=== PATIENT | female | born 1955 | race Caucasian/White ===

== ENCOUNTER 2018-03-22 11:52 | Inpatient (IN) | payer BC ==
[2018-03-22] MEDS ORDERED: SODIUM CHLORIDE 0.9% 1,000 ML IV ONE (13:11)
[2018-03-22] MEDS ORDERED: PIPERACILLIN-TAZOBACTAM 3.375 GM in DEXTROSE/WATER 1 50ML.BAG IVPB STA (13:11)
[2018-03-22] MEDS ORDERED: metroNIDAZOLE-NS PMX 500 MG in SALINE 1 100ML.BAG IVPB STA (13:11)
--- NOTE | 2018-03-22 13:13 | ED ---
Abdominal Pain HPI - General Chief Complaint: Abdominal Pain Stated Complaint: Abd Pain Time Seen by Provider: 03/22/18 12:38 Source: patient, EMS Mode of arrival: EMS Limitations: no limitations - History of Present Illness Initial Comments: Patient is a 62-year-old female, transferred from [facility], with a chief complaint of perforated diverticulitis. Patient has been having pain since 2: 00 yesterday. Patient states he was initially seen in urgent care and treated for urinary tract infection. Today she went back to the emergency department because her pain was worse, computed tomography scan shows a localized perforated diverticulitis without evidence of abscess. Patient was given antibiotics and pain medication from the outside facility. Patient has no other complaints currently. - Related Data Home Medications Medication Instructions Recorded Confirmed Albuterol Sulfate [Proair Hfa] 2 puff INHALATION RT-QID PRN 03/22/18 03/22/18 Cholecalciferol [Vitamin D3] 5,000 unit PO DAILY 03/22/18 03/22/18 Clindamycin Gel [Clindamycin 1 applic TOPICAL BID 03/22/18 03/22/18 Phosphate] Cyanocobalamin (Vitamin B-12) 5,000 mcg PO DAILY 03/22/18 03/22/18 [Vitamin B12] Diclofenac Sodium [Voltaren] 75 mg PO BID 03/22/18 03/22/18 Fenofibrate Nanocrystallized 145 mg PO DAILY 03/22/18 03/22/18 [Tricor] Fish Oil/Dha/Epa [Fish Oil 1,200 1 cap PO DAILY 03/22/18 03/22/18 mg Fish Oil] Fluticasone Nasal [place] [Flonase 1 - 2 spray EA NOSTRIL BID PRN 03/22/18 Nasal [place]] Glimepiride [Amaryl] 2 mg PO DAILY 03/22/18 03/22/18 Glucosam/Manan-Msm1/C/Robin/Bosw 1 tab PO DAILY 03/22/18 03/22/18 [Glucosamine-Chondroitin Tablet] Ketoconazole 2% Cream [Nizoral 2%] 1 applic TOPICAL DAILY 03/22/18 03/22/18 Levothyroxine Sodium [Synthroid] 100 mcg PO DAILY 03/22/18 03/22/18 RX: Desloratadine 5 mg PO DAILY 03/22/18 03/22/18 RX: Ranitidine HCl 150 mg PO BID 03/22/18 03/22/18 Vitamin E (Dl,Tocopheryl Acet) 400 unit PO DAILY 03/22/18 03/22/18 [Vitamin E] amLODIPine [Norvasc] 5 mg PO DAILY 03/22/18 03/22/18 traMADol HCL [Ultram] 50 mg PO DAILY 03/22/18 03/22/18 Allergies Allergy/AdvReac Type Severity Reaction Status Date / Time ciprofloxacin [From Cipro] Allergy Unknown Verified 03/22/18 13:02 metformin Allergy Nausea & Verified 03/22/18 13:02 Vomiting & Diarrhea atorvastatin [From Lipitor] AdvReac MUSCLE PAIN Verified 03/22/18 13:02 lisinopril AdvReac Cough Verified 03/22/18 13:02 simvastatin AdvReac MUSCLE PAIN Verified 03/22/18 13:02 Review of Systems ROS Statement: Those systems with pertinent positive or pertinent negative responses have been documented in the HPI. ROS Other: All systems not noted in ROS Statement are negative. Constitutional: Reports: fever Gastrointestinal: Reports: abdominal pain, nausea Past Medical History Past Medical History: Asthma, Cancer, Diabetes Mellitus, Hyperlipidemia, Hypertension, Sleep Apnea/CPAP/BIPAP, Thyroid Disorder History of Any Multi-Drug Resistant Organisms: None Reported Past Surgical History: Orthopedic Surgery Past Psychological History: No Psychological Hx Reported Smoking Status: Never smoker Past Alcohol Use History: Rare Past Drug Use History: None Reported General Exam Limitations: no limitations General appearance: alert, in no apparent distress Head exam: Present: atraumatic, normocephalic Eye exam: Present: normal appearance ENT exam: Present: normal exam Neck exam: Present: normal inspection Respiratory exam: Present: normal lung sounds bilaterally. Absent: respiratory distress, wheezes Cardiovascular Exam: Present: normal rhythm, tachycardia GI/Abdominal exam: Present: soft, tenderness (Patient has tenderness in the suprapubic region, and the left lower quadrant. Abdomen is nonperitoneal ). Absent: distended Rectal exam: Present: deferred Extremities exam: Present: normal inspection Back exam: Present: normal inspection Neurological exam: Present: alert, oriented X3 Psychiatric exam: Present: normal affect, normal mood Skin exam: Present: warm, dry, intact Course Vital Signs 03/22/18 11:53 Temperature 100.8 F H Pulse Rate 110 H Respiratory 20 Rate Blood Pressure 151/67 O2 Sat by Pulse 97 Oximetry Medical Decision Making - Medical Decision Making Patient presents with a chief complaint of a ruptured diverticulitis from an outside facility. On initial evaluation, patient is mildly febrile and tachycardic. She otherwise appears stable. Patient was given pain medications at the outside facility and says that currently her pain is tolerable. She was given an initial dose of Unasyn and vancomycin. This case was discussed with Dr. Quintero who accepts admission with consult to Dr. Montenegro for medicine. He is requesting initiation of Zosyn and Flagyl. Patient was given an additional liter of normal saline bolus, and started on a rate of 100ml per hour. Patient is nothing by mouth. Disposition Clinical Impression: Sepsis, Acute abdomen, Perforated diverticulum Disposition: ADMITTED IP TO THIS HOSP Condition: Fair Referrals: Jesse Dallas MD [Primary Care Provider] - 1-2 days Decision to Admit Reason: Admit from EC - Out of Hospital Transfer - Req. Specs Out of Hospital Transfer - Requested Specifics: Other Non-Acute
[2018-03-22] MEDS ORDERED: NALOXONE 0.4 MG/ML 1 ML VIAL IV PRN (13:16)
[2018-03-22] MEDS ORDERED: MORPHINE ORAL SOLN 10 MG/5 ML CUP PO PRN (13:16)
[2018-03-22] MEDS ORDERED: ONDANSETRON 4 MG/2 ML VIAL IVP PRN (13:16)
[2018-03-22 14:27] VITALS: BMI 44.0
[2018-03-22] MEDS: HYDROmorphone 0.5 MG/0.5 ML SYRINGE IVP PRN ×2 (14:45→23:34)
[2018-03-22] MEDS: SODIUM CHLORIDE 0.9% 1,000 ML IV SCH (15:20)
--- NOTE | 2018-03-22 16:07 | P.GSHP ---
History of Present Illness H&P Date: 03/22/18 62-year-old female presents from an outside facility secondary to localized perforated diverticulitis. She states that she began having pain yesterday and initially was seen in urgent care center and was treated for UTI. Due to increased amount of pain, she didn't present to the emergency department and workup revealed diverticulitis. She states that she has had a few episodes of mild diverticulitis in the past. She denies any nausea and vomiting. She states that most of her pain is in her suprapubic area. She denies any change in bowel function. She states currently she does not feel febrile. She states her last colonoscopy was approximately 2 or 3 years ago with findings of 3 polyps that were benign. She states her only abdominal surgery as a history of a hysterectomy. She has no other complaints at this time. She is resting comfortably in bed. Her is at bedside. - Review of Systems All systems: negative Past Medical History Past Medical History: Asthma, Cancer, Diabetes Mellitus, Hyperlipidemia, Hypertension, Sleep Apnea/CPAP/BIPAP, Thyroid Disorder Additional Past Medical History / Comment(s): diverticulitis, skin cancer History of Any Multi-Drug Resistant Organisms: None Reported Past Surgical History: Bladder Surgery, Hysterectomy, Orthopedic Surgery, Uterine Ablation Additional Past Surgical History / Comment(s): "Pacemaker in bladder" can be turned off prior to surgeries. Past Psychological History: No Psychological Hx Reported Smoking Status: Never smoker Past Alcohol Use History: Rare Past Drug Use History: None Reported Medications and Allergies Home Medications Medication Instructions Recorded Confirmed Type Albuterol Sulfate [Proair Hfa] 2 puff INHALATION RT-QID PRN 03/22/18 03/22/18 History Cholecalciferol [Vitamin D3] 5,000 unit PO DAILY 03/22/18 03/22/18 History Clindamycin Gel [Clindamycin 1 applic TOPICAL BID 03/22/18 03/22/18 History Phosphate] Cyanocobalamin (Vitamin B-12) 5,000 mcg PO DAILY 03/22/18 03/22/18 History [Vitamin B12] Desloratadine 5 mg PO DAILY 03/22/18 03/22/18 History Diclofenac Sodium [Voltaren] 75 mg PO BID 03/22/18 03/22/18 History Fenofibrate Nanocrystallized 145 mg PO DAILY 03/22/18 03/22/18 History [Tricor] Fish Oil/Dha/Epa [Fish Oil 1,200 1 cap PO DAILY 03/22/18 03/22/18 History mg Fish Oil] Fluticasone Nasal [place] [Flonase 1 - 2 spray EA NOSTRIL BID PRN 03/22/18 History Nasal [place]] Glimepiride [Amaryl] 2 mg PO DAILY 03/22/18 03/22/18 History Glucosam/Manan-Msm1/C/Robin/Bosw 1 tab PO DAILY 03/22/18 03/22/18 History [Glucosamine-Chondroitin Tablet] Ketoconazole 2% Cream [Nizoral 2%] 1 applic TOPICAL DAILY 03/22/18 03/22/18 History Levothyroxine Sodium [Synthroid] 100 mcg PO DAILY 03/22/18 03/22/18 History Ranitidine HCl 150 mg PO BID 03/22/18 03/22/18 History Vitamin E (Dl,Tocopheryl Acet) 400 unit PO DAILY 03/22/18 03/22/18 History [Vitamin E] amLODIPine [Norvasc] 5 mg PO DAILY 03/22/18 03/22/18 History traMADol HCL [Ultram] 50 mg PO DAILY 03/22/18 03/22/18 History Allergies Allergy/AdvReac Type Severity Reaction Status Date / Time ciprofloxacin [From Cipro] Allergy Unknown Verified 03/22/18 13:02 metformin Allergy Nausea & Verified 03/22/18 13:02 Vomiting & Diarrhea atorvastatin [From Lipitor] AdvReac MUSCLE PAIN Verified 03/22/18 13:02 lisinopril AdvReac Cough Verified 03/22/18 13:02 simvastatin AdvReac MUSCLE PAIN Verified 03/22/18 13:02 Surgical - Exam Osteopathic Statement: *. No significant issues noted on an osteopathic structural exam other than those noted in the History and Physical/Consult. Vital Signs Temp Pulse Resp BP Pulse Ox 100.8 F H 110 H 20 151/67 97 03/22/18 11:53 03/22/18 11:53 03/22/18 11:53 03/22/18 11:53 03/22/18 11:53 - General well nourished, no distress - Neck trachea midline - Respiratory No difficulty with respiration - Abdomen Soft, mild tenderness to palpation in suprapubic area and lower quadrants, no tenderness to percussion, no rebound, no guarding, nondistended - Neurologic normal sensation - Psychiatric oriented to time, oriented to person, oriented to place, speech is normal Results - Imaging CT scan - abdomen: report reviewed (CT of the abdomen and pelvis was performed at an outside facility prior to her transfer. I did review the images as they were uploaded into our synapse system. These images do show inflammatory changes of her sigmoid colon. There is localized pneumoperitoneum around her sigmoid colon. There is no obvious abscess.), image reviewed CT scan - pelvis: report reviewed, image reviewed Assessment and Plan (1) Perforated diverticulum Narrative/Plan: 62-year-old female with localized perforated diverticulitis - Begin antibiotics, Zosyn and Flagyl will be used - Keep the patient nothing by mouth - IV fluid resuscitation - Documents from original hospital were reviewed, leukocytosis of 12.3 with 81.6 % neutrophils - I had a long discussion with the patient and the patient's . At this time, she does not have peritonitis. We will continue antibiotic and medical management of her diverticulitis. I did discuss with the family that if medical management is not enough, the patient may require surgical intervention. This would require an ostomy creation. The patient is understanding of this and would like to continue with medical management at this time. - Medical consultation placed, appreciate recommendations - Will continue to follow with serial abdominal exams and follow CBC - The patient and the patient's are agreeable to this plan. Current Visit: Yes Status: Acute Code(s): K57.80 - DVTRCLI OF INTEST, PART UNSP, W PERF AND ABSCESS W/O BLEED SNOMED Code(s): 91305645
[2018-03-22] MEDS ORDERED: INSULIN ASPART 100 UNIT/ML 1 ML 10 ML VIAL SQ SCH (17:30)
[2018-03-22 17:33] LABS: Glucose,Whole Blood 99 mg/dL (75-99)
[2018-03-22] MEDS: ACETAMINOPHEN TAB 325 MG TAB PO PRN (20:37)
[2018-03-22] MEDS: KETOROLAC 30 MG/ML 1 ML VIAL IVP PRN (22:18)
[2018-03-22 23:34] LABS: Glucose,Whole Blood 118 mg/dL (75-99)
[2018-03-23] MEDS: metroNIDAZOLE-NS PMX 500 MG in SALINE 1 100ML.BAG IVPB SCH ×4 (00:03→23:55)
[2018-03-23] MEDS: SODIUM CHLORIDE 0.9% 1,000 ML IV SCH ×5 (01:58→23:47)
[2018-03-23] MEDS: KETOROLAC 30 MG/ML 1 ML VIAL IVP PRN (04:51)
[2018-03-23] MEDS: INSULIN ASPART 100 UNIT/ML 1 ML 10 ML VIAL SQ SCH ×5 (05:22→23:51)
[2018-03-23 05:24] LABS: Glucose,Whole Blood 120 mg/dL (75-99)
[2018-03-23 07:24] LABS: Basophils % (A) 0 %; Eosinophils % (A) 0 %; HCT 36.2 % (34.0-46.0); HGB 11.9 gm/dL (11.4-16.0); Lymphocytes # (A) 0.6 k/uL (1.0-4.8); Lymphocytes % (A) 6 %; MCV 84.9 fL (80.0-100.0); Monocytes # (A) 0.5 k/uL (0-1.0); Monocytes % (A) 5 %; Neutrophils # (A) 7.6 k/uL (1.3-7.7); Neutrophils % (A) 87 %; Platelet Count 155 k/uL (150-450); RBC 4.26 m/uL (3.80-5.40); RDW 14.4 % (11.5-15.5); WBC 8.7 k/uL (3.8-10.6)
[2018-03-23 07:38] LABS: Calcium 8.1 mg/dL (8.4-10.2); Potassium 3.9 mmol/L (3.5-5.1)
[2018-03-23] MEDS: ACETAMINOPHEN TAB 325 MG TAB PO PRN ×3 (10:34→23:53)
[2018-03-23] MEDS: amLODIPine 5 MG TAB PO SCH (12:02)
[2018-03-23 12:39] LABS: Glucose,Whole Blood 116 mg/dL (75-99)
[2018-03-23 13:35] LABS: Hemoglobin A1C 5.9 % (4.0-6.0)
--- NOTE | 2018-03-23 13:46 | P.CONS ---
History of Present Illness - Reason for Consult Consult date: 03/23/18 Medical management - History of Present Illness This is a 62-year-old female patient of Dr. Dallas with past medical history of diverticulitis previously needing antibiotics, diabetes mellitus type 2, hyperlipidemia, hypertension, obstructive sleep apnea on CPAP, hypothyroidism, skin cancer on her face, breast cancer status post right mastectomy and was on tamoxifen for 5 years. Patient states that she developed severe abdominal pain and went to the clinic yesterday and was told that she had a bladder infection. She did not get any improvement and was worsening and went to [facility]. She underwent a CAT scan of the abdomen that showed a localized perforated diverticulitis without evidence of abscess. Patient was started on antibiotics and pain medication and then transferred to [facility] emergency center for evaluation and was then admitted under the care of Dr. Quintero to the [facility] floor. She is currently nothing by mouth, on IV fluids, Flagyl. She states she feels somewhat better today. She is waiting for Dr. Quintero to decide if surgery is necessary. Patient did have a drop in her pulse ox when she was sleeping and was placed on oxygen. Patient to have family member bring in her CPAP from home. She has been febrile with temperature max of 101.6. Review of Systems All systems: negative Constitutional: Reports chills, Reports fever, Reports poor appetite Eyes: denies blurred vision, denies pain Ears, nose, mouth and throat: Denies headache, Denies sore throat Cardiovascular: Denies chest pain, Denies shortness of breath Respiratory: Reports sleep apnea, Denies cough, Denies cough with sputum, Denies dyspnea, Denies excessive sputum Gastrointestinal: Reports abdominal pain, Reports loss of appetite, Denies diarrhea, Denies nausea, Denies vomiting Genitourinary: Denies dysuria, Denies hematuria Musculoskeletal: Denies myalgias Integumentary: Denies pruritus, Denies rash Neurological: Denies numbness, Denies weakness Psychiatric: Denies anxiety, Denies depression Endocrine: Denies fatigue, Denies weight change Past Medical History Past Medical History: Asthma, Cancer, Diabetes Mellitus, Hyperlipidemia, Hypertension, Sleep Apnea/CPAP/BIPAP, Thyroid Disorder Additional Past Medical History / Comment(s): diverticulitis, rest cancer status post right mastectomy and on tamoxifen for 5 years, skin cancer, obstructive sleep apnea with CPAP. History of Any Multi-Drug Resistant Organisms: None Reported Past Surgical History: Bladder Surgery, Hysterectomy, Orthopedic Surgery, Uterine Ablation Additional Past Surgical History / Comment(s): "Pacemaker in bladder" can be turned off prior to surgeries, right mastectomy, left total knee arthroplasty, right carpal tunnel release. Past Psychological History: No Psychological Hx Reported Smoking Status: Never smoker Past Alcohol Use History: Rare Additional Past Alcohol Use History / Comment(s): Patient is a lifelong nonsmoker. She denies any marijuana, street drug or alcohol use. 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 She has recently moved from [place] to [place]. Past Drug Use History: None Reported - Past Family History Mother Additional Family Medical History / Comment(s): Mother at age 78 from Alzheimer's dementia. Father Additional Family Medical History / Comment(s): Father at age 82 with history of prostate cancer with metastatic disease to bone. Brother(s) Additional Family Medical History / Comment(s): Patient has 1 brother that has "drug problems"and she is not having sisters. Patient has 2 children that have no major medical problems. Medications and Allergies Home Medications Medication Instructions Recorded Confirmed Type Albuterol Sulfate [Proair Hfa] 2 puff INHALATION RT-QID PRN 03/22/18 03/22/18 History Cholecalciferol [Vitamin D3] 5,000 unit PO DAILY 03/22/18 03/22/18 History Clindamycin Gel [Clindamycin 1 applic TOPICAL BID 03/22/18 03/22/18 History Phosphate] Cyanocobalamin (Vitamin B-12) 5,000 mcg PO DAILY 03/22/18 03/22/18 History [Vitamin B12] Desloratadine 5 mg PO DAILY 03/22/18 03/22/18 History Diclofenac Sodium [Voltaren] 75 mg PO BID 03/22/18 03/22/18 History Fenofibrate Nanocrystallized 145 mg PO DAILY 03/22/18 03/22/18 History [Tricor] Fish Oil/Dha/Epa [Fish Oil 1,200 1 cap PO DAILY 03/22/18 03/22/18 History mg Fish Oil] Fluticasone Nasal [place] [Flonase 1 - 2 spray EA NOSTRIL BID PRN 03/22/18 History Nasal [place]] Glimepiride [Amaryl] 2 mg PO DAILY 03/22/18 03/22/18 History Glucosam/Manan-Msm1/C/Robin/Bosw 1 tab PO DAILY 03/22/18 03/22/18 History [Glucosamine-Chondroitin Tablet] Ketoconazole 2% Cream [Nizoral 2%] 1 applic TOPICAL DAILY 03/22/18 03/22/18 History Levothyroxine Sodium [Synthroid] 100 mcg PO DAILY 03/22/18 03/22/18 History Ranitidine HCl 150 mg PO BID 03/22/18 03/22/18 History Vitamin E (Dl,Tocopheryl Acet) 400 unit PO DAILY 03/22/18 03/22/18 History [Vitamin E] amLODIPine [Norvasc] 5 mg PO DAILY 03/22/18 03/22/18 History traMADol HCL [Ultram] 50 mg PO DAILY 03/22/18 03/22/18 History Allergies Allergy/AdvReac Type Severity Reaction Status Date / Time ciprofloxacin [From Cipro] Allergy Unknown Verified 03/22/18 13:02 metformin Allergy Nausea & Verified 03/22/18 13:02 Vomiting & Diarrhea atorvastatin [From Lipitor] AdvReac MUSCLE PAIN Verified 03/22/18 13:02 lisinopril AdvReac Cough Verified 03/22/18 13:02 simvastatin AdvReac MUSCLE PAIN Verified 03/22/18 13:02 Physical Exam Vitals: Vital Signs Temp Pulse Pulse Resp BP BP BP 03/23/18 07:27 99.9 F H 85 18 104/65 03/23/18 01:08 98.5 F 71 17 137/68 03/22/18 22:22 98.7 F 03/22/18 20:23 101.6 F H 94 16 134/61 03/22/18 14:34 98.3 F 103 H 18 148/73 03/22/18 13:44 117 H 22 135/80 Pulse Ox 03/23/18 07:27 94 L 03/23/18 01:08 92 L 03/22/18 22:22 03/22/18 20:23 91 L 03/22/18 14:34 93 L 03/22/18 13:44 94 L Intake and Output 03/22/18 03/23/18 03/23/18 22:59 06:59 14:59 Intake Total 1500 Balance 1500 Intake: Intake, IV Titration 1500 Amount Sodium Chloride 0.9% 1, 1500 000 ml @ 150 mls/hr IV . Q6H40M [facility] Rx#:[id number] Other: # Voids 1 1 Gen: This is a morbidly obese 62-year-old female. She is resting in bed and appears to be comfortable. No acute distress is noted. HEENT: Head is atraumatic, normocephalic. Pupils equal, round. Sclerae is anicteric. NECK: Supple. No JVD. No lymphadenopathy. No thyromegaly. LUNGS: Clear to auscultation. No wheezes or rhonchi. No intercostal retractions. HEART: Regular rate and rhythm. No murmur. ABDOMEN: Soft. Bowel sounds are present. No masses. Mild tenderness to the suprapubic area and lower quadrants more so on the left. EXTREMITIES: No pedal edema. No calf tenderness. NEUROLOGICAL: Patient is awake, alert and oriented x3. Cranial nerves 2 through 12 are grossly intact. Results CBC & Chem 7: 03/23/18 06:45 03/23/18 06:45 Labs: Abnormal Lab Results - Last 24 Hours (Table) 03/22/18 03/23/18 03/23/18 Range/Units 23:33 05:21 06:45 Lymphocytes # 0.6 L (1.0-4.8) k/uL Carbon Dioxide (22-30) mmol/L Glucose (74-99) mg/dL POC Glucose (mg/dL) 118 H 120 H (75-99) mg/dL Calcium (8.4-10.2) mg/dL 03/23/18 03/23/18 Range/Units 06:45 12:36 Lymphocytes # (1.0-4.8) k/uL Carbon Dioxide 21 L (22-30) mmol/L Glucose 112 H (74-99) mg/dL POC Glucose (mg/dL) 116 H (75-99) mg/dL Calcium 8.1 L (8.4-10.2) mg/dL Assessment and Plan Plan: 1. Perforated diverticulum with diverticulitis presenting with sepsis with fever, tachycardia and leukocytosis of 12. Patient is currently on Flagyl and will add in Zosyn as indicated by Dr. Quintero's note. She is nothing by mouth. Patient to be monitored and may require surgery. 2. Hypoxia secondary to obstructive sleep apnea. Patient was placed on nasal cannula oxygen. Family to bring in CPAP. 3. Diabetes mellitus type 2. Patient will be on NovoLog scale every 6 hours only for now. Glimepiride is on hold. 4. Asthma mild intermittent, stable without exacerbation. Patient will have albuterol inhaler available if needed and Flonase will be continued. 5. Hypertension. Continue Norvasc 5 mg daily. 6. Hypothyroidism. Continue levothyroxine. 7. Gastroesophageal reflux disease and gastrointestinal prophylaxis. IV Protonix. 8. Hyperlipidemia. TriCor on hold. 9. History of right-sided breast cancer status post mastectomy and skin cancer , stable. 10. DVT prophylaxis. Heparin subcu. Patient will be admitted to the hospital for a minimum of 4 night stay. Discharge plan: Return home Impression and plan of care have been directed as dictated by the signing physician. Talya Kim nurse practitioner acting as scribe for signing physician.
[2018-03-23] MEDS: PIPERACILLIN-TAZOBACTAM 3.375 GM in DEXTROSE/WATER 1 50ML.BAG IVPB SCH (16:02)
[2018-03-23] MEDS: HEPARIN SODIUM,PORCINE 5,000 UNIT/ML 1 ML VIAL SQ SCH ×2 (16:11→23:54)
[2018-03-23 17:10] LABS: Glucose,Whole Blood 97 mg/dL (75-99)
[2018-03-23] MEDS ORDERED: IBUPROFEN 600 MG TAB PO PRN (17:23)
[2018-03-23] MEDS ORDERED: LOPERAMIDE 2 MG CAP PO STA (21:02)
[2018-03-23 23:54] LABS: Glucose,Whole Blood 116 mg/dL (75-99)
[2018-03-24] MEDS: PIPERACILLIN-TAZOBACTAM 3.375 GM in DEXTROSE/WATER 1 50ML.BAG IVPB SCH ×3 (01:11→15:22)
[2018-03-24] MEDS ORDERED: LOPERAMIDE 2 MG CAP PO STA (04:58)
[2018-03-24] MEDS: INSULIN ASPART 100 UNIT/ML 1 ML 10 ML VIAL SQ SCH ×3 (05:22→11:52)
[2018-03-24] MEDS: SODIUM CHLORIDE 0.9% 1,000 ML IV SCH ×3 (05:24→20:27)
[2018-03-24 05:30] LABS: Glucose,Whole Blood 106 mg/dL (75-99)
[2018-03-24] MEDS: LEVOTHYROXINE 100 MCG TAB PO SCH (06:03)
--- NOTE | 2018-03-24 08:03 | P.PN ---
Subjective Progress Note Date: 03/23/18 Pt seen and examined at bedside. States she is beginning to have flatus and abdominal pain is improving. She did have a Tmax of 102 overnight. She states overall she is feeling better. She denies any nausea and vomiting. Objective - Vital Signs Vital signs: Vital Signs Temp 100.4 F H 03/23/18 23:00 Pulse 89 03/23/18 23:00 Resp 16 03/23/18 23:00 BP 122/58 03/23/18 23:00 Pulse Ox 93 L 03/23/18 23:00 Intake & Output 03/23/18 03/24/18 03/24/18 18:59 06:59 18:59 Intake Total 1950 Output Total 4 Balance 194 Intake: Intake, IV Titration 1950 Amount Piperacillin-Tazobactam 3 50 .375 gm In Dextrose/Water 1 50ml.bag @ 12.5 mls/hr IVPB Q8HR [facility] Rx#: [id number] Sodium Chloride 0.9% 1, 1800 000 ml @ 150 mls/hr IV . Q6H40M [facility] Rx#:[id number] metroNIDAZOLE-NS PMX 500 100 mg In Saline 1 100ml.bag @ 100 mls/hr IVPB Q8HR [facility] Rx#:[id number] Output: Urine 4 Other: # Voids 2 1 # Bowel Movements 1 1 - Constitutional General appearance: Present: cooperative - Neck Neck: Present: normal ROM - Respiratory Details: No difficulty with respiration - Gastrointestinal Gastrointestinal Comment(s): Soft, mild suprapubic tenderness, nondistended, no rebound, no guarding - Psychiatric Psychiatric: Present: A&O x's 3, appropriate affect - Labs CBC & Chem 7: 03/23/18 06:45 03/23/18 06:45 Labs: Abnormal Lab Results - Last 24 Hours (Table) 03/23/18 03/23/18 03/24/18 Range/Units 12:36 23:50 05:21 POC Glucose (mg/dL) 116 H 116 H 106 H (75-99) mg/dL Assessment and Plan (1) Perforated diverticulum Narrative/Plan: 62-year-old female with localized perforated diverticulitis - Continue antibiotics, Zosyn and Flagyl will be used - Keep the patient nothing by mouth - IV fluid resuscitation - Leukocytosis resolved - Medical consultation placed, appreciate recommendations - Will continue to follow with serial abdominal exams and follow CBC - The patient and the patient's are agreeable to this plan. Current Visit: Yes Status: Acute Code(s): K57.80 - DVTRCLI OF INTEST, PART UNSP, W PERF AND ABSCESS W/O BLEED SNOMED Code(s): 59575780
[2018-03-24] MEDS ORDERED: FLUTICASONE 50MCG/SPRAY NASAL 16GM EA NOSTRIL PRN (08:07)
[2018-03-24] MEDS: metroNIDAZOLE-NS PMX 500 MG in SALINE 1 100ML.BAG IVPB SCH ×2 (08:10→15:22)
[2018-03-24] MEDS: HEPARIN SODIUM,PORCINE 5,000 UNIT/ML 1 ML VIAL SQ SCH ×2 (08:10→15:23)
[2018-03-24] MEDS: amLODIPine 5 MG TAB PO SCH (08:11)
[2018-03-24] MEDS: PANTOPRAZOLE 40 MG/10 ML VIAL IVP SCH (08:11)
[2018-03-24] MEDS: LORATADINE 10 MG TAB PO SCH (09:13)
[2018-03-24 09:21] LABS: Potassium 3.8 mmol/L (3.5-5.1)
[2018-03-24 09:24] LABS: HGB 11.1 gm/dL (11.4-16.0); RBC 3.99 m/uL (3.80-5.40); WBC 6.6 k/uL (3.8-10.6)
[2018-03-24 09:25] LABS: Basophils % (A) 0 %; Eosinophils # (A) 0.1 k/uL (0-0.7); Eosinophils % (A) 2 %; Lymphocytes # (A) 0.6 k/uL (1.0-4.8); Lymphocytes % (A) 8 %; MCH 27.7 pg (25.0-35.0); MCHC 32.6 g/dL (31.0-37.0); Mean Platelet Volume 7.4; Monocytes # (A) 0.4 k/uL (0-1.0); Monocytes % (A) 6 %; Neutrophils # (A) 5.4 k/uL (1.3-7.7); Neutrophils % (A) 83 %; Platelet Count 176 k/uL (150-450); RDW 14.2 % (11.5-15.5)
--- NOTE | 2018-03-24 09:46 | P.PN ---
Subjective Progress Note Date: 03/24/18 Patient seen and examined at bedside. She states she feels much better today. She denies any abdominal pain. She states that she did have a febrile episode yesterday, and then began to have diarrhea and states that her fever past. She has been ambulating. She states that she is hungry. Objective - Vital Signs Vital signs: Vital Signs Temp 97.6 F 03/24/18 08:12 Pulse 76 03/24/18 08:12 Resp 18 03/24/18 08:12 BP 115/68 03/24/18 08:12 Pulse Ox 91 L 03/24/18 08:12 Intake & Output 03/23/18 03/24/18 03/24/18 18:59 06:59 18:59 Intake Total 1950 Output Total 4 Balance 1945 Intake: Intake, IV Titration 1950 Amount Piperacillin-Tazobactam 3 50 .375 gm In Dextrose/Water 1 50ml.bag @ 12.5 mls/hr IVPB Q8HR [facility] Rx#: [id number] Sodium Chloride 0.9% 1, 1800 000 ml @ 150 mls/hr IV . Q6H40M [facility] Rx#:[id number] metroNIDAZOLE-NS PMX 500 100 mg In Saline 1 100ml.bag @ 100 mls/hr IVPB Q8HR [facility] Rx#:[id number] Output: Urine 4 Other: # Voids 2 1 # Bowel Movements 1 1 - Constitutional General appearance: Present: cooperative, no acute distress - EENT ENT: Present: hearing grossly normal - Respiratory Details: No difficulty with respiration - Gastrointestinal Gastrointestinal Comment(s): Soft, nontender, nondistended, no rebound, no guarding - Psychiatric Psychiatric: Present: A&O x's 3 - Labs CBC & Chem 7: 03/24/18 08:35 03/24/18 08:35 Labs: Abnormal Lab Results - Last 24 Hours (Table) 03/23/18 03/23/18 03/24/18 Range/Units 12:36 23:50 05:21 Hgb (11.4-16.0) gm/dL Lymphocytes # (1.0-4.8) k/uL Chloride (98-107) mmol/L Carbon Dioxide (22-30) mmol/L Glucose (74-99) mg/dL POC Glucose (mg/dL) 116 H 116 H 106 H (75-99) mg/dL Calcium (8.4-10.2) mg/dL 03/24/18 03/24/18 Range/Units 08:35 08:35 Hgb 11.1 L (11.4-16.0) gm/dL Lymphocytes # 0.6 L (1.0-4.8) k/uL Chloride 109 H (98-107) mmol/L Carbon Dioxide 21 L (22-30) mmol/L Glucose 112 H (74-99) mg/dL POC Glucose (mg/dL) (75-99) mg/dL Calcium 8.0 L (8.4-10.2) mg/dL Assessment and Plan (1) Perforated diverticulum Narrative/Plan: 62-year-old female with localized perforated diverticulitis - Continue antibiotics, Zosyn and Flagyl will be used - Advance patient to clear liquid diet - Continue IV fluids - Leukocytosis resolved - Medical recommendations - Will continue to follow with serial abdominal exams and follow CBC Current Visit: Yes Status: Acute Code(s): K57.80 - DVTRCLI OF INTEST, PART UNSP, W PERF AND ABSCESS W/O BLEED SNOMED Code(s): 52993479
[2018-03-24] MEDS ORDERED: LOPERAMIDE 2 MG CAP PO PRN (10:30)
[2018-03-24 11:28] LABS: Glucose,Whole Blood 102 mg/dL (75-99)
--- NOTE | 2018-03-24 13:52 | P.PN ---
Subjective Progress Note Date: 03/24/18 This is a 62-year-old female patient of Dr. Dallas with past medical history of diverticulitis previously needing antibiotics, diabetes mellitus type 2, hyperlipidemia, hypertension, obstructive sleep apnea on CPAP, hypothyroidism, skin cancer on her face, breast cancer status post right mastectomy and was on tamoxifen for 5 years. Patient states that she developed severe abdominal pain and went to the clinic yesterday and was told that she had a bladder infection. She did not get any improvement and was worsening and went to [facility]. She underwent a CAT scan of the abdomen that showed a localized perforated diverticulitis without evidence of abscess. Patient was started on antibiotics and pain medication and then transferred to [facility] emergency center for evaluation and was then admitted under the care of Dr. Quintero to the [facility] floor. She is currently nothing by mouth, on IV fluids, Flagyl. She states she feels somewhat better today. She is waiting for Dr. Quintero to decide if surgery is necessary. Patient did have a drop in her pulse ox when she was sleeping and was placed on oxygen. Patient to have family member bring in her CPAP from home. She has been febrile with temperature max of 101.6. 03/24: Patient states that she had significant diarrhea last evening as well as this morning. Her temperature max is 102.8. White count is at 6.6. She is currently on clear liquid diet. Despite diarrhea, abdominal pain is improved. No plan for surgical intervention at this point. Objective - Vital Signs Vital signs: Vital Signs Temp 97.6 F 03/24/18 08:12 Pulse 76 03/24/18 08:12 Resp 18 03/24/18 08:12 BP 115/68 03/24/18 08:12 Pulse Ox 91 L 03/24/18 08:12 Intake & Output 03/23/18 03/24/18 03/24/18 18:59 06:59 18:59 Intake Total 1950 1200 Output Total 4 Balance 194 1200 Intake: Intake, IV Titration 1950 1200 Amount Piperacillin-Tazobactam 3 50 .375 gm In Dextrose/Water 1 50ml.bag @ 12.5 mls/hr IVPB Q8HR [facility] Rx#: [id number] Sodium Chloride 0.9% 1, 1800 1200 000 ml @ 150 mls/hr IV . Q6H40M [facility] Rx#:[id number] metroNIDAZOLE-NS PMX 500 100 mg In Saline 1 100ml.bag @ 100 mls/hr IVPB Q8HR [facility] Rx#:[id number] Output: Urine 4 Other: # Voids 2 1 3 # Bowel Movements 1 1 1 - Exam Gen: This is a morbidly obese 62-year-old female. She is resting in bed and appears to be comfortable. No acute distress is noted. HEENT: Head is atraumatic, normocephalic. Pupils equal, round. Sclerae is anicteric. NECK: Supple. No JVD. No lymphadenopathy. No thyromegaly. LUNGS: Clear to auscultation. No wheezes or rhonchi. No intercostal retractions. HEART: Regular rate and rhythm. No murmur. ABDOMEN: Soft. Bowel sounds are present. No masses. Mild tenderness to the suprapubic area and lower quadrants more so on the left. EXTREMITIES: No pedal edema. No calf tenderness. NEUROLOGICAL: Patient is awake, alert and oriented x3. Cranial nerves 2 through 12 are grossly intact. - Labs CBC & Chem 7: 03/24/18 08:35 03/24/18 08:35 Labs: Abnormal Lab Results - Last 24 Hours (Table) 03/23/18 03/24/18 03/24/18 Range/Units 23:50 05:21 08:35 Hgb 11.1 L (11.4-16.0) gm/dL Lymphocytes # 0.6 L (1.0-4.8) k/uL Chloride (98-107) mmol/L Carbon Dioxide (22-30) mmol/L Glucose (74-99) mg/dL POC Glucose (mg/dL) 116 H 106 H (75-99) mg/dL Calcium (8.4-10.2) mg/dL 03/24/18 03/24/18 Range/Units 08:35 11:27 Hgb (11.4-16.0) gm/dL Lymphocytes # (1.0-4.8) k/uL Chloride 109 H (98-107) mmol/L Carbon Dioxide 21 L (22-30) mmol/L Glucose 112 H (74-99) mg/dL POC Glucose (mg/dL) 102 H (75-99) mg/dL Calcium 8.0 L (8.4-10.2) mg/dL Assessment and Plan Plan: 1. Perforated diverticulum with diverticulitis presenting with sepsis with fever, tachycardia and leukocytosis of 12. Continue Flagyl and Zosyn. She is on clear liquid diet. 2. Hypoxia secondary to obstructive sleep apnea. Patient was placed on nasal cannula oxygen. Family to bring in CPAP. 3. Diabetes mellitus type 2. Patient will be on NovoLog scale every 6 hours only for now. Glimepiride is on hold. 4. Asthma mild intermittent, stable without exacerbation. Patient will have albuterol inhaler available if needed and Flonase will be continued. 5. Hypertension. Continue Norvasc 5 mg daily. 6. Hypothyroidism. Continue levothyroxine. 7. Gastroesophageal reflux disease and gastrointestinal prophylaxis. IV Protonix. 8. Hyperlipidemia. TriCor on hold. 9. History of right-sided breast cancer status post mastectomy and skin cancer , stable. 10. DVT prophylaxis. Heparin subcu. Discharge plan: Return home Impression and plan of care have been directed as dictated by the signing physician. Talya Kim nurse practitioner acting as scribe for signing physician.
[2018-03-24] MEDS: ACETAMINOPHEN TAB 325 MG TAB PO PRN (15:23)
--- NOTE | 2018-03-24 15:48 | CDI ---
Last Revision, September 2017 Documentation Clarification Form Date: 03/24/18 From: Xiao Chang RN, CCDS Admit Date: 03/22/2018 1:16:00 PM Patient Name: Rolanda Wakefield Visit Number: [id number] Discharge Date: ATTENTION: The Clinical Documentation Specialists (CDI) and [facility] Coding Staff appreciate your assistance in clarifying documentation. Please respond to the clarification below the line at the bottom and electronically sign. The CDI & [facility] Coding staff will review the response and follow-up if needed. Please note: Queries are made part of the Legal Health Record. If you have any questions, please contact the author of this message via ITS. Dr. Page A [facility] Medical consultation 03/23/18 and ongoing documentation presenting with sepsis, with fever, tachycardia and leukocytosis of 12. History/Risk Factors: Diverticulitis, Diabetes Mellitus type 2, hypertension, Obstructive sleep apnea on CPAP, Breast cancer Clinical Indicators: Transfer from [facility] where she underwent a CAT scan of the abdomen that showed a localized perforated diverticulitis without evidence of abscess. She was treated with antibiotics and pain meds and transferred to [facility]. Vital signs on admission: 134/61 94 136 101.6 WBC/Left Shift: 8.7 Other Clinical Indicators: ED clinical impression: Sepsis, acute abdomen, Perforated diverticulum Treatment: Zosyn IV, Flagyl IV IV Fluids Dilaudid IVP PRN, Motrin PO PRN Monitor Labs, vital signs In your professional opinion, please clarify if these findings signify one of the following conditions, whether the condition is POA, and cause, if known: Condition Sepsis ruled out Sepsis ruled in (due to) Other, please specify Unable to determine Present on Admission: Yes No SIRS Criteria.2 or more of the following may indicate SIRS: Temperature < 96.8F (36C) or > 101.0F (38.3C) Heart Rate > 90 bpm Respiratory Rate > 20 breaths/min or PaCO2 < 32 mmHg White Blood Cell Count > 12,000 or < 4,000 cells/mm3 or > 10% bands Lactate >2.0 mmol/L (>4.0 is equivalent to septic shock) Please continue to document in your progress notes and discharge summary in order to capture severity of illness and risk of mortality. Include clinical findings that support your diagnosis. __ Sepsis is ruled in due to febrile episodes, elevated white blood cell count and source of infection being diverticulitis. This was present on her admission. _ MTDD
[2018-03-24 17:15] LABS: Glucose,Whole Blood 114 mg/dL (75-99)
[2018-03-25] MEDS: HEPARIN SODIUM,PORCINE 5,000 UNIT/ML 1 ML VIAL SQ SCH ×4 (00:14→23:56)
[2018-03-25] MEDS: metroNIDAZOLE-NS PMX 500 MG in SALINE 1 100ML.BAG IVPB SCH ×4 (00:14→23:57)
[2018-03-25] MEDS: PIPERACILLIN-TAZOBACTAM 3.375 GM in DEXTROSE/WATER 1 50ML.BAG IVPB SCH ×3 (00:14→15:34)
[2018-03-25] MEDS: ACETAMINOPHEN TAB 325 MG TAB PO PRN (00:31)
[2018-03-25 00:34] LABS: Glucose,Whole Blood 107 mg/dL (75-99)
[2018-03-25] MEDS: INSULIN ASPART 100 UNIT/ML 1 ML 10 ML VIAL SQ SCH ×5 (00:36→20:52)
[2018-03-25] MEDS: KETOROLAC 30 MG/ML 1 ML VIAL IVP PRN (03:27)
[2018-03-25] MEDS: LEVOTHYROXINE 100 MCG TAB PO SCH (05:55)
[2018-03-25] MEDS: SODIUM CHLORIDE 0.9% 1,000 ML IV SCH ×4 (05:57→18:14)
[2018-03-25 06:58] LABS: Glucose,Whole Blood 86 mg/dL (75-99)
[2018-03-25 07:17] LABS: Basophils % (A) 0 %; Eosinophils # (A) 0.2 k/uL (0-0.7); Eosinophils % (A) 3 %; HCT 31.8 % (34.0-46.0); HGB 10.4 gm/dL (11.4-16.0); Lymphocytes # (A) 0.9 k/uL (1.0-4.8); Lymphocytes % (A) 16 %; MCH 27.6 pg (25.0-35.0); MCHC 32.6 g/dL (31.0-37.0); MCV 84.4 fL (80.0-100.0); Mean Platelet Volume 7.2; Monocytes # (A) 0.4 k/uL (0-1.0); Monocytes % (A) 7 %; Neutrophils # (A) 4.1 k/uL (1.3-7.7); Neutrophils % (A) 72 %; Platelet Count 199 k/uL (150-450); RBC 3.77 m/uL (3.80-5.40); RDW 14.3 % (11.5-15.5); WBC 5.7 k/uL (3.8-10.6)
[2018-03-25 07:36] LABS: Calcium 7.6 mg/dL (8.4-10.2); Potassium 3.7 mmol/L (3.5-5.1)
[2018-03-25] MEDS: PANTOPRAZOLE 40 MG/10 ML VIAL IVP SCH (08:02)
[2018-03-25] MEDS: LORATADINE 10 MG TAB PO SCH (08:03)
[2018-03-25] MEDS: amLODIPine 5 MG TAB PO SCH (08:03)
[2018-03-25 11:26] LABS: Glucose,Whole Blood 86 mg/dL (75-99)
--- NOTE | 2018-03-25 12:57 | P.PN ---
Subjective This is a 62-year-old female patient of Dr. Dallas with past medical history of diverticulitis previously needing antibiotics, diabetes mellitus type 2, hyperlipidemia, hypertension, obstructive sleep apnea on CPAP, hypothyroidism, skin cancer on her face, breast cancer status post right mastectomy and was on tamoxifen for 5 years. Patient states that she developed severe abdominal pain and went to the clinic yesterday and was told that she had a bladder infection. She did not get any improvement and was worsening and went to [facility]. She underwent a CAT scan of the abdomen that showed a localized perforated diverticulitis without evidence of abscess. Patient was started on antibiotics and pain medication and then transferred to [facility] emergency center for evaluation and was then admitted under the care of Dr. Quintero to the [facility] floor. She is currently nothing by mouth, on IV fluids, Flagyl. She states she feels somewhat better today. She is waiting for Dr. Quintero to decide if surgery is necessary. Patient did have a drop in her pulse ox when she was sleeping and was placed on oxygen. Patient to have family member bring in her CPAP from home. She has been febrile with temperature max of 101.6. 03/24: Patient states that she had significant diarrhea last evening as well as this morning. Her temperature max is 102.8. White count is at 6.6. She is currently on clear liquid diet. Despite diarrhea, abdominal pain is improved. No plan for surgical intervention at this point. 03/25: Patient was evaluated today, she is resting in bed comfortably, patient reports abdominal pain has improved. She was noted to be febrile with a temperature 100.2 this morning, blood pressure remains stable at 117/64 with heart rate of 81. White count is 5.7. She has been advanced to a full liquid diet. She continue with Zosyn and Flagyl. Objective - Vital Signs Vital signs: Vital Signs Temp 98.8 F 03/25/18 08:00 Pulse 75 03/25/18 08:00 Resp 16 03/25/18 08:00 BP 117/64 03/25/18 08:00 Pulse Ox 93 L 03/25/18 01:41 Intake & Output 03/24/18 03/25/18 03/25/18 18:59 06:59 18:59 Intake Total 1720 1665 240 Balance 1720 1665 240 Intake: Intake, IV Titration 1200 465 Amount Piperacillin-Tazobactam 3 15 .375 gm In Dextrose/Water 1 50ml.bag @ 12.5 mls/hr IVPB Q8HR [facility] Rx#: [id number] Sodium Chloride 0.9% 1, 1200 450 000 ml @ 150 mls/hr IV . Q6H40M [facility] Rx#:[id number] Oral 520 1200 240 Other: Voiding Method Toilet # Voids 2 3 # Bowel Movements 1 - Constitutional General appearance: Present: cooperative, morbidly obese, no acute distress - EENT Eyes: Present: PERRLA, normal appearance ENT: Present: hearing grossly normal - Neck Neck: Present: normal ROM. Absent: lymphadenopathy, thyromegaly - Respiratory Respiratory: bilateral: CTA, negative: rhonchi, wheezing - Cardiovascular Rhythm: regular Heart sounds: normal: S1, S2 Abnormal Heart Sounds: Absent: systolic murmur, diastolic murmur - Gastrointestinal General gastrointestinal: Present: soft, tenderness. Absent: distended, organomegaly Localized gastrointestinal: tender: RLQ, LLQ, suprabubic - Integumentary Integumentary: Present: normal - Neurologic Neurologic: Present: CNII-XII intact. Absent: focal deficits - Musculoskeletal Musculoskeletal: Present: gait normal - Psychiatric Psychiatric: Present: A&O x's 3 - Labs CBC & Chem 7: 03/25/18 06:27 18 06:27 Labs: Abnormal Lab Results - Last 24 Hours (Table) 03/24/18 03/25/18 03/25/18 Range/Units 17:09 00:32 06:27 RBC 3.77 L (3.80-5.40) m/uL Hgb 10.4 L (11.4-16.0) gm/dL Hct 31.8 L (34.0-46.0) % Lymphocytes # 0.9 L (1.0-4.8) k/uL Chloride (98-107) mmol/L POC Glucose (mg/dL) 114 H 107 H (75-99) mg/dL Calcium (8.4-10.2) mg/dL 03/25/18 Range/Units 06:27 RBC (3.80-5.40) m/uL Hgb (11.4-16.0) gm/dL Hct (34.0-46.0) % Lymphocytes # (1.0-4.8) k/uL Chloride 108 H (98-107) mmol/L POC Glucose (mg/dL) (75-99) mg/dL Calcium 7.6 L (8.4-10.2) mg/dL Assessment and Plan Plan: 1. Perforated diverticulum with diverticulitis presenting with sepsis with fever, tachycardia and leukocytosis of 12. Continue Flagyl and Zosyn. She is on full liquid diet. 2. Hypoxia secondary to obstructive sleep apnea. Patient was placed on nasal cannula oxygen. Family to bring in CPAP. 3. Diabetes mellitus type 2. Patient will be on NovoLog scale every 6 hours only for now. Glimepiride is on hold. 4. Asthma mild intermittent, stable without exacerbation. Patient will have albuterol inhaler available if needed and Flonase will be continued. 5. Hypertension. Continue Norvasc 5 mg daily. 6. Hypothyroidism. Continue levothyroxine. 7. Gastroesophageal reflux disease and gastrointestinal prophylaxis. IV Protonix. 8. Hyperlipidemia. TriCor on hold. 9. History of right-sided breast cancer status post mastectomy and skin cancer , stable. 10. DVT prophylaxis. Heparin subcu. Discharge plan: Return home The above impression and plan of care have been discussed and directed by signing physician. Cris Alejandro nurse practitioner acting as scribe for signing physician.
--- NOTE | 2018-03-25 16:03 | P.PN ---
Subjective Progress Note Date: 03/25/18 Patient seen and examined at bedside. She is doing well today. She states her abdominal pain is gone. She states she continues to have flatus and diarrhea episodes. She did have a fever of 100.2 this morning. Objective - Vital Signs Vital signs: Vital Signs Temp 98.9 F 03/25/18 14:45 Pulse 87 03/25/18 14:45 Resp 18 03/25/18 14:45 BP 131/60 03/25/18 14:45 Pulse Ox 95 03/25/18 14:45 Intake & Output 03/24/18 03/25/18 03/25/18 18:59 06:59 18:59 Intake Total 1720 1665 1960 Balance 1720 1665 1960 Intake: Intake, IV Titration 0988 539 9998 Amount Piperacillin-Tazobactam 3 15 50 .375 gm In Dextrose/Water 1 50ml.bag @ 12.5 mls/hr IVPB Q8HR [facility] Rx#: [id number] Sodium Chloride 0.9% 1, 4309 772 4846 000 ml @ 150 mls/hr IV . Q6H40M [facility] Rx#:[id number] metroNIDAZOLE-NS PMX 500 100 mg In Saline 1 100ml.bag @ 100 mls/hr IVPB Q8HR [facility] Rx#:[id number] Oral 520 1200 760 Other: Voiding Method Toilet # Voids 2 3 2 # Bowel Movements 1 - Constitutional General appearance: Present: cooperative - Neck Neck: Present: normal ROM - Respiratory Details: No difficulty with respiration - Gastrointestinal Gastrointestinal Comment(s): Soft, nontender, nondistended, no rebound, no guarding - Psychiatric Psychiatric: Present: A&O x's 3, appropriate affect, intact judgment & insight - Labs CBC & Chem 7: 03/25/18 06:27 03/25/18 06:27 Labs: Abnormal Lab Results - Last 24 Hours (Table) 03/24/18 03/25/18 03/25/18 Range/Units 17:09 00:32 06:27 RBC 3.77 L (3.80-5.40) m/uL Hgb 10.4 L (11.4-16.0) gm/dL Hct 31.8 L (34.0-46.0) % Lymphocytes # 0.9 L (1.0-4.8) k/uL Chloride (98-107) mmol/L POC Glucose (mg/dL) 114 H 107 H (75-99) mg/dL Calcium (8.4-10.2) mg/dL 03/25/18 Range/Units 06:27 RBC (3.80-5.40) m/uL Hgb (11.4-16.0) gm/dL Hct (34.0-46.0) % Lymphocytes # (1.0-4.8) k/uL Chloride 108 H (98-107) mmol/L POC Glucose (mg/dL) (75-99) mg/dL Calcium 7.6 L (8.4-10.2) mg/dL Assessment and Plan (1) Perforated diverticulum Narrative/Plan: 62-year-old female with localized perforated diverticulitis, improving - Continue antibiotics, Zosyn and Flagyl will be used - Advance patient to full liquid diet - Continue IV fluids - Leukocytosis resolved - Medical recommendations - Will continue to follow with serial abdominal exams and follow CBC - If patient continues to have fevers, will obtain a CT of the abdomen and pelvis to rule out any abscess formation Current Visit: Yes Status: Acute Code(s): K57.80 - DVTRCLI OF INTEST, PART UNSP, W PERF AND ABSCESS W/O BLEED SNOMED Code(s): 49436578
[2018-03-25 16:59] LABS: Glucose,Whole Blood 100 mg/dL (75-99)
[2018-03-25 20:00] LABS: Glucose,Whole Blood 113 mg/dL (75-99)
[2018-03-26] MEDS: PIPERACILLIN-TAZOBACTAM 3.375 GM in DEXTROSE/WATER 1 50ML.BAG IVPB SCH ×2 (01:00→09:18)
[2018-03-26] MEDS: LEVOTHYROXINE 100 MCG TAB PO SCH (05:53)
[2018-03-26] MEDS: KETOROLAC 30 MG/ML 1 ML VIAL IVP PRN (05:53)
[2018-03-26 06:57] LABS: Glucose,Whole Blood 103 mg/dL (75-99)
[2018-03-26] MEDS: SODIUM CHLORIDE 0.9% 1,000 ML IV SCH ×2 (07:04→11:06)
[2018-03-26 07:22] LABS: Basophils % (A) 0 %; Eosinophils # (A) 0.3 k/uL (0-0.7); Eosinophils % (A) 5 %; HCT 34.7 % (34.0-46.0); HGB 11.3 gm/dL (11.4-16.0); Lymphocytes # (A) 0.9 k/uL (1.0-4.8); Lymphocytes % (A) 18 %; MCH 27.7 pg (25.0-35.0); MCHC 32.6 g/dL (31.0-37.0); MCV 84.8 fL (80.0-100.0); Mean Platelet Volume 6.7; Monocytes # (A) 0.3 k/uL (0-1.0); Monocytes % (A) 6 %; Neutrophils # (A) 3.6 k/uL (1.3-7.7); Neutrophils % (A) 67 %; Platelet Count 240 k/uL (150-450); RBC 4.09 m/uL (3.80-5.40); RDW 14.2 % (11.5-15.5); WBC 5.3 k/uL (3.8-10.6)
[2018-03-26 07:32] LABS: Calcium 8.2 mg/dL (8.4-10.2); Potassium 3.7 mmol/L (3.5-5.1); Total Bilirubin 0.3 mg/dL (0.2-1.3); Total Protein 5.3 g/dL (6.3-8.2)
[2018-03-26 07:51] VITALS: BP 166/80; PULSE 69; RESP 16; TEMP 98.9
[2018-03-26] MEDS: INSULIN ASPART 100 UNIT/ML 1 ML 10 ML VIAL SQ SCH ×2 (09:12→11:03)
[2018-03-26] MEDS: HEPARIN SODIUM,PORCINE 5,000 UNIT/ML 1 ML VIAL SQ SCH (09:17)
[2018-03-26] MEDS: PANTOPRAZOLE 40 MG/10 ML VIAL IVP SCH (09:17)
[2018-03-26] MEDS: amLODIPine 5 MG TAB PO SCH (09:18)
[2018-03-26] MEDS: metroNIDAZOLE-NS PMX 500 MG in SALINE 1 100ML.BAG IVPB SCH (09:18)
[2018-03-26] MEDS: LORATADINE 10 MG TAB PO SCH (09:18)
[2018-03-26 11:01] LABS: Glucose,Whole Blood 124 mg/dL (75-99)
--- NOTE | 2018-03-26 12:07 | P.PN ---
Subjective Progress Note Date: 03/26/18 Principal diagnosis: Severe abdominal pain, perforated diverticulum, hypoxia, diabetes, asthma, hypertension, hypothyroidism and hyperlipidemia. This is a 62-year-old female patient of Dr. Dallas with past medical history of diverticulitis previously needing antibiotics, diabetes mellitus type 2, hyperlipidemia, hypertension, obstructive sleep apnea on CPAP, hypothyroidism, skin cancer on her face, breast cancer status post right mastectomy and was on tamoxifen for 5 years. Patient states that she developed severe abdominal pain and went to the clinic yesterday and was told that she had a bladder infection. She did not get any improvement and was worsening and went to [facility]. She underwent a CAT scan of the abdomen that showed a localized perforated diverticulitis without evidence of abscess. Patient was started on antibiotics and pain medication and then transferred to [facility] emergency center for evaluation and was then admitted under the care of Dr. Quintero to the [facility] floor. She is currently nothing by mouth, on IV fluids, Flagyl. She states she feels somewhat better today. She is waiting for Dr. Quintero to decide if surgery is necessary. Patient did have a drop in her pulse ox when she was sleeping and was placed on oxygen. Patient to have family member bring in her CPAP from home. She has been febrile with temperature max of 101.6. 03/24: Patient states that she had significant diarrhea last evening as well as this morning. Her temperature max is 102.8. White count is at 6.6. She is currently on clear liquid diet. Despite diarrhea, abdominal pain is improved. No plan for surgical intervention at this point. 03/25: Patient was evaluated today, she is resting in bed comfortably, patient reports abdominal pain has improved. She was noted to be febrile with a temperature 100.2 this morning, blood pressure remains stable at 117/64 with heart rate of 81. White count is 5.7. She has been advanced to a full liquid diet. She continue with Zosyn and Flagyl. 03/26: Patient is very stable medically and from medical standpoint will be stable to be discharged home with oral antibiotic with quick follow-up with general surgery and possibly colonoscopy been 3 weeks. Antibiotic-kumar will be on Augmentin and Flagyl orally. Objective - Vital Signs Vital signs: Vital Signs Temp 98.9 F 03/26/18 07:50 Pulse 69 03/26/18 07:50 Resp 16 03/26/18 07:50 BP 166/80 03/26/18 07:50 Pulse Ox 93 L 03/26/18 07:50 Intake & Output 03/25/18 03/26/18 03/26/18 18:59 06:59 18:59 Intake Total 2320 2700 250 Output Total 455 Balance 2320 2700 -205 Intake: Intake, IV Titration 1200 1500 Amount Piperacillin-Tazobactam 3 50 .375 gm In Dextrose/Water 1 50ml.bag @ 12.5 mls/hr IVPB Q8HR SURESH Rx#: [id number] Sodium Chloride 0.9% 1, 1050 1500 000 ml @ 150 mls/hr IV . Q6H40M SURESH Rx#:[id number] metroNIDAZOLE-NS PMX 500 100 mg In Saline 1 100ml.bag @ 100 mls/hr IVPB Q8HR SURESH Rx#:[id number] Oral 1120 1200 250 Output: Urine 455 Other: Voiding Method Toilet # Voids 2 5 # Bowel Movements 3 - Exam Review of systems: CONSTITUTIONAL: Well-developed no acute respiratory distress. EYES: No icterus sclerae, no conjunctivitis. EARS, NOSE, MOUTH, THROAT, and FACE: No sore throat, lymphadenopathy, carotid bruits or deformity. RESPIRATORY: No SOB cough or wheezes. CARDIOVASCULAR: No CP, Palpitation, PND, Orthopnea, or angina. GASTROINTESTINAL: Still have slight abdominal discomfort with nausea and continue to have mild diarrhea.. GENITOURINARY: Negative for Hematuria or UTI, no kidney stones. INTEGUMENT/BREAST: Negative for any muscular injury with mild osteoarthritis.. HEMATOLOGIC/LYMPHATIC: Negative for bleed or purpura. MUSCULOSKELTAL: Negative for Myalgia or arthralgia. NEURLOGICAL: No LOC, Sz or syncope, blurred vision dizziness or abnormality.. BEHAVIORAL/PSYCH: Negative. ENDOCRINE: Negative. Physical examination: General Appearance: Alert, cooperative, no distress, appears stated age. Neck HEENT: Supple, no lymphadenopathy, no thyroid enlargement, no carotid bruits. Lungs: Clear to auscultation without crackles or wheezes no rhonchi, no deformity. Chest Wall: Chest wall normal expansion with deep inspiration no tenderness and no deformity was found on exam, no costochondral pain or discomfort. Heart: Regular rate and rhythm, S1, S2 normal, no murmur, rub or gallop. Back: Symmetric, no curvature, ROM normal, no CVA tenderness. Abdomen: Slightly distended no rebound or rigidity no masses. Extremities: Extremities normal, atraumatic, no cyanosis or edema. Pulses: 2+ and symmetric. Skin: Skin color, texture, tugor normal, no rashes or lesions. Neurologic: Alert oriented x3 cranial nerves II through XII intact, no motor deficit, no abnormal balance or gait. - Labs CBC & Chem 7: 03/26/18 06:32 03/26/18 06:32 Labs: Abnormal Lab Results - Last 24 Hours (Table) 03/25/18 03/25/18 03/26/18 Range/Units 16:52 19:56 06:32 Hgb 11.3 L (11.4-16.0) gm/dL Lymphocytes # 0.9 L (1.0-4.8) k/uL Chloride (98-107) mmol/L Carbon Dioxide (22-30) mmol/L Glucose (74-99) mg/dL POC Glucose (mg/dL) 100 H 113 H (75-99) mg/dL Calcium (8.4-10.2) mg/dL AST (14-36) U/L Total Protein (6.3-8.2) g/dL Albumin (3.5-5.0) g/dL 03/26/1818 03/26/18 Range/Units 06:32 06:53 10:50 Hgb (11.4-16.0) gm/dL Lymphocytes # (1.0-4.8) k/uL Chloride 108 H (98-107) mmol/L Carbon Dioxide 21 L (22-30) mmol/L Glucose 107 H (74-99) mg/dL POC Glucose (mg/dL) 103 H 124 H (75-99) mg/dL Calcium 8.2 L (8.4-10.2) mg/dL AST 45 H (14-36) U/L Total Protein 5.3 L (6.3-8.2) g/dL Albumin 3.0 L (3.5-5.0) g/dL Assessment and Plan Plan: 1. Perforated diverticulum with diverticulitis presenting with sepsis with fever, tachycardia and leukocytosis of 12. Continue Flagyl and Zosyn. She is on full liquid diet. 2. Hypoxia secondary to obstructive sleep apnea. Patient was placed on nasal cannula oxygen. Family to bring in CPAP. 3. Diabetes mellitus type 2. Patient will be on NovoLog scale every 6 hours only for now. Glimepiride is on hold. 4. Asthma mild intermittent, stable without exacerbation. Patient will have albuterol inhaler available if needed and Flonase will be continued. 5. Hypertension. Continue Norvasc 5 mg daily. 6. Hypothyroidism. Continue levothyroxine. 7. Gastroesophageal reflux disease and gastrointestinal prophylaxis. 8. Hyperlipidemia. TriCor on hold. 9. History of right-sided breast cancer status post mastectomy and skin cancer , stable. 10. DVT prophylaxis. Heparin subcu. Patient is feeling much better will be able to be discharged home today and follow as an outpatient continue oral Augmentin and Flagyl as an outpatient.
--- NOTE | 2018-03-26 12:38 | P.DS ---
Providers Date of admission: 03/22/18 13:16 Attending physician: Camilo Quintero DO Consults: 03/22/18 13:16 Consult Physician Stat Consulting Provider: Saud Montenegro Reason/Comments: Medical Management Do you want consulting provider notified?: Yes Primary care physician: Jesse Dallas MD - Discharge Diagnosis(es) (1) Perforated diverticulum Current Visit: Yes Status: Acute Hospital Course: 62-year-old female presented secondary to abdominal pain. At an outside facility, CT of the abdomen and pelvis was performed and a localized perforation of the diverticulitis was found. On presentation, the patient did not have peritoneal signs and was comfortable. Abdominal pain was improved. She was started on antibiotics and followed during her admission. Her abdominal pain subsided on her first full admission date. She did have some febrile episodes throughout her admission, this is been relieved. Pain has completely ceased. She denies any nausea and vomiting. Her diet was slowly advanced during her admission and she is tolerating a soft diet. At this point , she is stable for discharge with antibiotics at home. She is to follow-up with her surgeon in 1 week. Patient Condition at Discharge: Fair Plan - Discharge Summary Discharge Rx Participant: Yes New Discharge Prescriptions: New Acetaminophen Tab [Tylenol] 650 mg PO Q6HR PRN tab PRN Reason: Fever Amoxicillin/Potassium Clav [Augmentin 875-125 Tablet] 1 tab PO Q12HR #14 tab Ibuprofen [Motrin] 600 mg PO QID PRN tab PRN Reason: Fever Loperamide [Imodium] 2 mg PO BID PRN cap PRN Reason: Diarrhea metroNIDAZOLE [Flagyl] 500 mg PO TID #21 tab Continue Vitamin E (Dl,Tocopheryl Acet) [Vitamin E] 400 unit PO DAILY traMADol HCL [Ultram] 50 mg PO DAILY Ranitidine HCl 150 mg PO BID Cholecalciferol [Vitamin D3] 5,000 unit PO DAILY Albuterol Sulfate [Proair Hfa] 2 puff INHALATION RT-QID PRN PRN Reason: Shortness Of Breath Ketoconazole 2% Cream [Nizoral 2%] 1 applic TOPICAL DAILY Glucosam/Manan-Msm1/C/Robin/Bosw [Glucosamine-Chondroitin Tablet] 1 tab PO DAILY Glimepiride [Amaryl] 2 mg PO DAILY Fluticasone Nasal [place] [Flonase Nasal [place]] 1 - 2 spray EA NOSTRIL BID PRN PRN Reason: Allergy Symptoms Fish Oil/Dha/Epa [Fish Oil 1,200 mg Fish Oil] 1 cap PO DAILY Diclofenac Sodium [Voltaren] 75 mg PO BID Clindamycin Gel [Clindamycin Phosphate] 1 applic TOPICAL BID Levothyroxine Sodium [Synthroid] 100 mcg PO DAILY Fenofibrate Nanocrystallized [Tricor] 145 mg PO DAILY Desloratadine 5 mg PO DAILY Cyanocobalamin (Vitamin B-12) [Vitamin B12] 5,000 mcg PO DAILY amLODIPine [Norvasc] 5 mg PO DAILY Discharge Medication List Albuterol Sulfate [Proair Hfa] 2 puff INHALATION RT-QID PRN 03/22/18 [History] Cholecalciferol [Vitamin D3] 5,000 unit PO DAILY 03/22/18 [History] Clindamycin Gel [Clindamycin Phosphate] 1 applic TOPICAL BID 03/22/18 [History] Cyanocobalamin (Vitamin B-12) [Vitamin B12] 5,000 mcg PO DAILY 03/22/18 [History ] Desloratadine 5 mg PO DAILY 03/22/18 [History] Diclofenac Sodium [Voltaren] 75 mg PO BID 03/22/18 [History] Fenofibrate Nanocrystallized [Tricor] 145 mg PO DAILY 03/22/18 [History] Fish Oil/Dha/Epa [Fish Oil 1,200 mg Fish Oil] 1 cap PO DAILY 03/22/18 [History] Fluticasone Nasal [place] [Flonase Nasal [place]] 1 - 2 spray EA NOSTRIL BID PRN [History] Glimepiride [Amaryl] 2 mg PO DAILY 03/22/18 [History] Glucosam/Manan-Msm1/C/Robin/Bosw [Glucosamine-Chondroitin Tablet] 1 tab PO DAILY 03/22/18 [History] Ketoconazole 2% Cream [Nizoral 2%] 1 applic TOPICAL DAILY 03/22/18 [History] Levothyroxine Sodium [Synthroid] 100 mcg PO DAILY 03/22/18 [History] Ranitidine HCl 150 mg PO BID 03/22/18 [History] Vitamin E (Dl,Tocopheryl Acet) [Vitamin E] 400 unit PO DAILY 03/22/18 [History] amLODIPine [Norvasc] 5 mg PO DAILY 03/22/18 [History] traMADol HCL [Ultram] 50 mg PO DAILY 03/22/18 [History] Acetaminophen Tab [Tylenol] 650 mg PO Q6HR PRN tab 03/26/18 [Rx] Amoxicillin/Potassium Clav [Augmentin 875-125 Tablet] 1 tab PO Q12HR #14 tab [Rx] Ibuprofen [Motrin] 600 mg PO QID PRN tab 03/26/18 [Rx] Loperamide [Imodium] 2 mg PO BID PRN cap 03/26/18 [Rx] metroNIDAZOLE [Flagyl] 500 mg PO TID #21 tab 03/26/18 [Rx] Follow up Appointment(s)/Referral(s): Jesse Dallas MD [Primary Care Provider] - 03/30/18 1:15 pm Camilo Quintero DO [Doctor of Osteopathic Medicine] - 03/31/18 10:15 am Activity/Diet/Wound Care/Special Instructions: Return to emergency department if any significant increase in abdominal pain. Continue soft diet Expect some loose bowel movements due to antibiotic use. Discharge Disposition: HOME SELF-CARE
[2018-03-26] MEDS ORDERED: metroNIDAZOLE 500 MG TAB PO SCH (16:00)
[2018-03-27] MEDS ORDERED: PANTOPRAZOLE 40 MG TABLET PO SCH (07:30)
== END 2018-03-26 14:48 | disposition home or self-care (01) | DRG 872 ==
LOC: EC 11:52 → 3SUR 13:16
PROVIDERS: ADMIT Surgery; ATTEND Surgery
DX: A41.9 Sepsis, unspecified organism (principal); K57.20 Diverticulitis of large intestine with perforation and abscess without bleeding; R09.02 Hypoxemia; E03.9 Hypothyroidism, unspecified; E11.9 Type 2 diabetes mellitus without complications; E78.5 Hyperlipidemia, unspecified; G47.33 Obstructive sleep apnea (adult) (pediatric); I10 Essential (primary) hypertension; J45.20 Mild intermittent asthma, uncomplicated; Z79.84 Long term (current) use of oral hypoglycemic drugs; Z79.899 Other long term (current) drug therapy; Z79.890 Hormone replacement therapy; Z82.0 Family history of epilepsy and other diseases of the nervous system; Z85.3 Personal history of malignant neoplasm of breast; Z85.828 Personal history of other malignant neoplasm of skin; Z90.11 Acquired absence of right breast and nipple; Z90.710 Acquired absence of both cervix and uterus; Z96.652 Presence of left artificial knee joint; Z95.0 Presence of cardiac pacemaker; Z88.1 Allergy status to other antibiotic agents; Z88.8 Allergy status to other drugs, medicaments and biological substances; Z81.3 Family history of other psychoactive substance abuse and dependence; K21.9 Gastro-esophageal reflux disease without esophagitis
CPT/HCPCS: 80048; 80053; 83036; 85025; 99285

== ENCOUNTER → 2018-06-09 | Outpatient (CLI) | payer BC ==
[2018-06-09 11:40] LABS: Basophils % (A) 1 %; Eosinophils # (A) 0.5 k/uL (0-0.7); Eosinophils % (A) 7 %; HCT 42.6 % (34.0-46.0); HGB 13.8 gm/dL (11.4-16.0); Lymphocytes # (A) 1.6 k/uL (1.0-4.8); Lymphocytes % (A) 24 %; MCH 27.2 pg (25.0-35.0); MCHC 32.3 g/dL (31.0-37.0); MCV 84.3 fL (80.0-100.0); Monocytes # (A) 0.4 k/uL (0-1.0); Monocytes % (A) 6 %; Neutrophils % (A) 60 %; Platelet Count 232 k/uL (150-450); RBC 5.06 m/uL (3.80-5.40); RDW 14.7 % (11.5-15.5); WBC 6.6 k/uL (3.8-10.6)
[2018-06-09 12:11] LABS: INR 1.1 (<1.2); Partial Thromboplastin Time 23.1 sec (22.0-30.0); Prothrombin Time 10.4 sec (9.0-12.0)
[2018-06-09 12:17] LABS: Calcium 9.7 mg/dL (8.4-10.2); Potassium 4.3 mmol/L (3.5-5.1)
== END | disposition home or self-care (01) ==
LOC: LABPAT 10:50
PROVIDERS: ATTEND Surgery
DX: Z01.818 Encounter for other preprocedural examination (principal)
CPT/HCPCS: 36415; 80048; 85025; 85610; 85730

== ENCOUNTER 2018-06-15 09:59 | Inpatient (IN) | payer BC ==
[2018-06-08 10:41] VITALS: BMI 43.5
[~2018-06-15 09:59] MED LIST: DEXAMETHASONE SOD PHOSPHATE 10 MG/ML 1 ML VIAL IV ONE; HYDROmorphone 0.5 MG/0.5 ML SYRINGE IVP PRN; LACTATED RINGERS 1,000 ML IV SCH; ONDANSETRON 4 MG/2 ML VIAL IVP ONE; ceFAZolin IN SWFI 2 GM/20 ML SYRINGE IVP ONE; metroNIDAZOLE-NS PMX 500 MG in SALINE 1 100ML.BAG IVPB ONE
[2018-06-15] MEDS ORDERED: MIDAZOLAM 2 MG/2 ML VIAL IVP ONE (10:58)
[2018-06-15] MEDS ORDERED: HEPARIN SODIUM,PORCINE 5,000 UNIT/ML 1 ML VIAL SQ ONE (11:00)
[2018-06-15] MEDS ORDERED: PROPOFOL 10 MG/ML 20 ML VIAL IV ONE (11:22)
[2018-06-15] MEDS ORDERED: LIDOCAINE 1% INJ 10MG/ML (20 ML MDV) ONE (11:22)
[2018-06-15] MEDS ORDERED: MIDAZOLAM 2 MG/2 ML VIAL ONE (11:22)
[2018-06-15] MEDS ORDERED: GLYCOPYRROLATE 0.2 MG/ML 2 ML VIAL ONE (11:22)
[2018-06-15] MEDS ORDERED: ROCURONIUM BROMIDE 10 MG/ML 10 ML VIAL IV ONE (11:22)
[2018-06-15] MEDS ORDERED: SUCCINYLCHOLINE CHLORIDE 100 MG/5 ML SYR IV ONE (11:22)
[2018-06-15] MEDS ORDERED: NEOSTIGMINE 1 MG/ML 10 ML VIAL ONE (11:22)
[2018-06-15] MEDS ORDERED: fentaNYL (PF) 50 MCG/ML 2 ML AMP ONE (11:22)
[2018-06-15] MEDS ORDERED: HYDROmorphone (PF) 1 MG/ML ONE (11:22)
[2018-06-15] MEDS ORDERED: BUPIVACAIN-EPI 0.25%-1:200,000 30 ML VIAL SQ ONE (11:48)
[2018-06-15] MEDS ORDERED: LACTATED RINGERS 1,000 ML IV ONE ×2 (12:00→13:38)
[2018-06-15] MEDS ORDERED: NALOXONE 0.4 MG/ML 1 ML VIAL IV PRN (13:15)
[2018-06-15] MEDS ORDERED: ONDANSETRON 4 MG/2 ML VIAL IVP PRN (13:42)
--- NOTE | 2018-06-15 13:56 | P.OP ---
Date of Procedure: 06/15/18 Preoperative Diagnosis: Chronic diverticulitis Postoperative Diagnosis: Chronic diverticulitis Procedure(s) Performed: Laparoscopic sigmoid colectomy, converted to open sigmoid colectomy Anesthesia: VAL Surgeon: Camilo Quintero Pathology: other (Sigmoid colon) Condition: stable Disposition: floor Indications for Procedure: 62-year-old female with chronic diverticulitis. Her last episode of diverticulitis did result in a localized perforation. She was treated conservatively with antibiotics at that time and did not develop an abscess. Due to these consistent and recurrent diverticulitis episodes, sigmoid colectomy was decided upon. The patient was explained the risks, benefits and alternatives to the procedure. She did provide consent prior to attending the operating suite. Operative Findings: Thickened and well adhered sigmoid colon Description of Procedure: The patient was brought into the operating suite and placed in supine position on the operating table. Epidural was placed by anesthesia prior to attending the operating suite. The patient then did receive sedation and underwent endotracheal intubation. The patient was placed in stirrups in lithotomy position. She was then prepped and draped in regular sterile fashion. A supraumbilical incision was made and the abdomen was entered under direct visualization using a Visiport device. Pneumoperitoneum was then achieved. The patient was then placed and steep Trendelenburg position. 2 additional 5 mm ports were then placed. One was placed in the right lower quadrant and one was placed in the left upper quadrant. Some adhesions were noted with the sigmoid and omentum and these were dissected using sharp dissection. Dissection was then carried along the white line of Toldt to dissect the colon from its peritoneal attachments. The sigmoid colon was noted to have dense adherence to the left lower quadrant abdominal wall. Dissection was carried both sharply and bluntly. The distal portion of these adhesions was unreachable with laparoscopy and deemed unsafe to continue. At this point the procedure was converted to an open procedure. A midline incision was made from the umbilicus to the pubis. Dissection was carried to the fascia the fascia was incised and the abdomen was entered. Dissection was carried along the densely adhered distal part of the sigmoid colon. Both a proximal and anticipated distal point of transection was made on the sigmoid colon. Proximally, a window was created between the colon and the mesocolon and a stapler device was fired. LigaSure device was used to dissect the colon from the mesocolon distally. A phlegmon was encountered and dissected through. The distal portion of the sigmoid colon was noted to be healthy and appropriate for transection. A stapler device was used to transect the distal part of the sigmoid colon. The sigmoid colon was then handed as specimen. Both proximal and distal ends seemed appropriate for anastomosis. Dilator device was used and it was decided to use a 29 EEA stapler for anastomosis. The proximal portion of the colon had the anvil inserted after creating a pursestring suture. The EEA device was then placed through the rectum and 2 pieces of the anvil were mated. The EEA device was fired and 2 donuts were noted. A leak test was then performed with no evidence of leak. Irrigation was used within the abdomen. All sponges were removed and sponge count was noted to be accurate. The midline incision was then closed with running 0 PDS looped suture. Skin incision was closed with dawna. Port sites were closed with 4- 0 Vicryl subcuticular suture. The patient was awakened in the operating suite and taken to postanesthesia care unit in stable condition with Long in place.
[2018-06-15] MEDS: ROPIVACAINE 250 MG, fentaNYL (PF) 625 MCG in SODIUM CHLORIDE 0.9% 188 ML EPIDURAL PRN (14:22)
[2018-06-15 16:39] LABS: Basophils % (A) 0 %; Eosinophils # (A) 0.1 k/uL (0-0.7); Eosinophils % (A) 1 %; HCT 41.3 % (34.0-46.0); HGB 13.1 gm/dL (11.4-16.0); Hypochromasia Slight; Lymphocytes # (A) 0.6 k/uL (1.0-4.8); Lymphocytes % (A) 6 %; MCH 27.3 pg (25.0-35.0); MCHC 31.7 g/dL (31.0-37.0); MCV 86.1 fL (80.0-100.0); Mean Platelet Volume 6.7; Monocytes # (A) 0.4 k/uL (0-1.0); Monocytes % (A) 3 %; Neutrophils # (A) 10.1 k/uL (1.3-7.7); Neutrophils % (A) 90 %; Platelet Count 203 k/uL (150-450); RBC 4.79 m/uL (3.80-5.40); RDW 14.4 % (11.5-15.5); WBC 11.2 k/uL (3.8-10.6)
[2018-06-15 16:53] LABS: Calcium 9.1 mg/dL (8.4-10.2); Potassium 3.9 mmol/L (3.5-5.1)
[2018-06-15] MEDS: METOCLOPRAMIDE 5 MG/ML 2 ML VIAL IVP SCH ×2 (18:01→23:32)
[2018-06-15] MEDS: HYDROmorphone 1 MG/ML 1 ML SYRINGE IVP PRN (18:01)
[2018-06-15] MEDS: LACTATED RINGERS 1,000 ML IV SCH ×2 (18:04→20:05)
[2018-06-15] MEDS: FAMOTIDINE 20 MG/2 ML VIAL IV SCH (20:01)
[2018-06-15] MEDS: HEPARIN SODIUM,PORCINE 5,000 UNIT/ML 1 ML VIAL SQ SCH (20:01)
[2018-06-15] MEDS: diphenhydrAMINE 50 MG/ML 1 ML VIAL IVP PRN (20:25)
[2018-06-16] MEDS: METOCLOPRAMIDE 5 MG/ML 2 ML VIAL IVP SCH ×4 (04:56→23:53)
[2018-06-16] MEDS: HEPARIN SODIUM,PORCINE 5,000 UNIT/ML 1 ML VIAL SQ SCH ×3 (04:56→20:45)
[2018-06-16] MEDS: LACTATED RINGERS 1,000 ML IV SCH ×3 (04:57→23:05)
[2018-06-16] MEDS: diphenhydrAMINE 50 MG/ML 1 ML VIAL IVP PRN ×2 (04:58→10:52)
[2018-06-16] MEDS ORDERED: ACETAMINOPHEN IV (For NPO) 1,000 MG in EMPTY BAG 1 BAG IVPB PRN (05:16)
--- NOTE | 2018-06-16 05:55 | P.PN ---
Progress Note - Text Progress Note Date: 06/16/18 The patient had thoracic epidural catheter placement for postoperative pain control. Postop day #( 1), status post sigmoid colectomy . The patient is doing well. The pain is well controlled with a combination of epidural infusion of local anesthetics and small IV dose of Dilaudid. Patient denies any weakness or paresthesia in the lower extremities.,and any back pain. There are no signs of infection around the epidural catheter skin entry site. We will continue the epidural infusion of local anesthetics as per protocol.
[2018-06-16] MEDS: FAMOTIDINE 20 MG/2 ML VIAL IV SCH (08:18)
[2018-06-16 08:26] LABS: Basophils % (A) 0 %; Eosinophils # (A) 0.1 k/uL (0-0.7); Eosinophils % (A) 1 %; HCT 37.6 % (34.0-46.0); Lymphocytes % (A) 11 %; MCH 27.6 pg (25.0-35.0); MCHC 31.8 g/dL (31.0-37.0); MCV 86.7 fL (80.0-100.0); Mean Platelet Volume 7.6; Monocytes # (A) 0.3 k/uL (0-1.0); Monocytes % (A) 3 %; Neutrophils # (A) 7.9 k/uL (1.3-7.7); Neutrophils % (A) 84 %; Platelet Count 195 k/uL (150-450); RBC 4.34 m/uL (3.80-5.40); RDW 14.5 % (11.5-15.5); WBC 9.4 k/uL (3.8-10.6)
[2018-06-16 08:45] LABS: Calcium 8.9 mg/dL (8.4-10.2); Potassium 4.1 mmol/L (3.5-5.1)
--- NOTE | 2018-06-16 09:34 | P.PN ---
Subjective Progress Note Date: 06/16/18 Patient seen and examined at bedside. Had some issues with pain control overnight, epidural was adjusted and patient states pain is much improved. Tolerating clear liquid diet. No bowel function as of yet. Long catheter in place. Objective - Vital Signs Vital signs: Vital Signs Temp 99.3 F 06/16/18 07:00 Pulse 74 06/16/18 07:00 Resp 16 06/16/18 07:00 BP 94/58 06/16/18 07:00 Pulse Ox 93 L 06/16/18 07:00 Intake & Output 06/15/18 06/16/18 06/16/18 18:59 06:59 18:59 Intake Total 3000 500 200 Output Total 625 625 Balance 2375 -125 200 Weight 122.47 kg Intake: IV 3000 Intake, IV Titration 500 Amount Lactated Ringers 1,000 ml 500 @ 125 mls/hr IV .Q8H SURESH Rx#:[id number] Oral 200 Output: Urine 375 625 Estimated Blood Loss 250 Other: Voiding Method Indwelling Catheter Indwelling Catheter Indwelling Catheter - Constitutional General appearance: Present: cooperative, no acute distress - Respiratory Details: No difficulty with respiration - Gastrointestinal Gastrointestinal Comment(s): Soft, appropriate tenderness, nondistended, no rebound, guarding, midline incision site clean, dry and intact with dawna in surgical dressing in place - Psychiatric Psychiatric: Present: A&O x's 3, appropriate affect - Labs CBC & Chem 7: 06/16/18 08:14 06/16/18 08:14 Labs: Abnormal Lab Results - Last 24 Hours (Table) 06/09/18 06/15/18 06/15/18 Range/Units 11:11 16:14 16:14 WBC 11.2 H (3.8-10.6) k/uL Neutrophils # 10.1 H (1.3-7.7) k/uL Lymphocytes # 0.6 L (1.0-4.8) k/uL Creatinine 1.07 H (0.52-1.04) mg/dL Glucose 152 H (74-99) mg/dL Crossmatch See Detail 06/16/18 06/16/18 Range/Units 08:14 08:14 WBC (3.8-10.6) k/uL Neutrophils # 7.9 H (1.3-7.7) k/uL Lymphocytes # (1.0-4.8) k/uL Creatinine 1.18 H (0.52-1.04) mg/dL Glucose 170 H (74-99) mg/dL Crossmatch Assessment and Plan Plan: 62-year-old female, postoperative day #1 status post laparoscopic converted to open sigmoid colectomy - Continue clear liquid diet, IV fluids - Epidural per anesthesia, continue Long while epidural was in place - Away bowel function - Local wound care - Medical consult for medical management
[2018-06-16] MEDS ORDERED: LORATADINE 10 MG TAB PO PRN (13:21)
[2018-06-16] MEDS ORDERED: ACETAMINOPHEN TAB 325 MG TAB PO PRN (13:21)
[2018-06-16] MEDS ORDERED: ALBUTEROL NEBULIZED 2.5 MG/3 ML INHALATION PRN (13:21)
--- NOTE | 2018-06-16 15:23 | P.CONS ---
History of Present Illness - Reason for Consult Consult date: 06/16/18 Medical management - History of Present Illness This is a 62-year-old female patient of Dr. Dallas with past medical history of diverticulitis previously needing antibiotics, diabetes mellitus type 2, hyperlipidemia, hypertension, obstructive sleep apnea on CPAP, hypothyroidism, skin cancer on her face, breast cancer status post right mastectomy and was on tamoxifen for 5 years, urinary retention status post bladder pacemaker. Patient had a recent hospitalization in March of this year for perforated diverticulum and diverticulitis with sepsis. She is now admitted under the care of Dr. Quintero status post laparoscopic sigmoid colectomy converted to open sigmoid colectomy due to chronic diverticulitis. Patient is seen one day postop. She states she was passing gas yesterday. Pain control is improved this morning. She has tolerated clear diet. Long catheter is in place. She does have a mild sore throat. CPAP is at the bedside. Review of Systems All systems: negative Constitutional: Denies chills, Denies fever, Denies weight loss Eyes: denies blurred vision, denies pain Ears, nose, mouth and throat: Denies headache, Denies sore throat Cardiovascular: Denies chest pain, Denies shortness of breath Respiratory: Denies cough Gastrointestinal: Reports abdominal pain, Denies diarrhea, Denies nausea, Denies vomiting Genitourinary: Denies dysuria, Denies hematuria Musculoskeletal: Denies myalgias Integumentary: Denies pruritus, Denies rash Neurological: Denies numbness, Denies weakness Psychiatric: Denies anxiety, Denies depression Endocrine: Denies fatigue, Denies weight change Past Medical History Past Medical History: Asthma, Cancer, GERD/Reflux, Hyperlipidemia, Hypertension , Sleep Apnea/CPAP/BIPAP, Thyroid Disorder Additional Past Medical History / Comment(s): diverticulitis with bowel perforation, breast cancer status post right mastectomy and on tamoxifen for 5 years, skin cancer, obstructive sleep apnea with CPAP, boil removed by bladder pacemaker History of Any Multi-Drug Resistant Organisms: None Reported Past Surgical History: Bladder Surgery, Hysterectomy, Orthopedic Surgery, Uterine Ablation Additional Past Surgical History / Comment(s): "Pacemaker in bladder" can be turned off prior to surgeries, right mastectomy, left total knee arthroplasty, right carpal tunnel release, christiano lasik surgery, vagina reconstructed Past Anesthesia/Blood Transfusion Reactions: Previous Problems w/ Anesthesia Additional Past Anesthesia/Blood Transfusion Reaction / Comm: "takes a while for me to come out" Past Psychological History: No Psychological Hx Reported Smoking Status: Never smoker Past Alcohol Use History: Rare Additional Past Alcohol Use History / Comment(s): Patient is a lifelong nonsmoker. She denies any marijuana, street drug or alcohol use. 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 She has recently moved from [place] to [place]. Past Drug Use History: None Reported - Past Family History Mother Family Medical History: Dementia Additional Family Medical History / Comment(s): Mother at age 78 from Alzheimer's dementia. Father Family Medical History: Cancer, Deep Vein Thrombosis (DVT) Additional Family Medical History / Comment(s): Father at age 82 with history of prostate cancer with metastatic disease to bone. Brother(s) Additional Family Medical History / Comment(s): Patient has 1 brother that has "drug problems". Patient has 2 children that have no major medical problems. Medications and Allergies Home Medications Medication Instructions Recorded Confirmed Type Albuterol Sulfate [Proair Hfa] 2 puff INHALATION RT-QID PRN 03/22/18 06/15/18 History Cholecalciferol [Vitamin D3] 5,000 unit PO DAILY 03/22/18 06/15/18 History Cyanocobalamin (Vitamin B-12) 5,000 mcg PO DAILY 03/22/18 06/15/18 History [Vitamin B12] Desloratadine 5 mg PO DAILY 03/22/18 06/15/18 History Diclofenac Sodium [Voltaren] 75 mg PO BID 03/22/18 06/15/18 History Fenofibrate Nanocrystallized 145 mg PO DAILY 03/22/18 06/15/18 History [Tricor] Fish Oil/Dha/Epa [Fish Oil 1,200 1 cap PO BID 03/22/18 06/15/18 History mg Fish Oil] Fluticasone Nasal [place] [Flonase 1 spray EA NOSTRIL DAILY 03/22/18 06/15/18 History Nasal [place]] Glucosam/Manan-Msm1/C/Robin/Bosw 1 tab PO DAILY 03/22/18 06/15/18 History [Glucosamine-Chondroitin Tablet] Ketoconazole 2% Cream [Nizoral 2%] 1 applic TOPICAL BID 03/22/18 06/15/18 History Levothyroxine Sodium [Synthroid] 100 mcg PO DAILY 03/22/18 06/15/18 History Ranitidine HCl 150 mg PO BID 03/22/18 06/15/18 History Vitamin E (Dl,Tocopheryl Acet) 400 unit PO DAILY 03/22/18 06/15/18 History [Vitamin E] amLODIPine [Norvasc] 5 mg PO DAILY 03/22/18 06/15/18 History Acetaminophen Tab [Tylenol] 650 mg PO Q6HR PRN tab 03/26/18 06/15/18 Rx Ibuprofen [Motrin] 600 mg PO QID PRN tab 03/26/18 06/15/18 Rx Montelukast [Singulair] 10 mg PO DAILY 06/08/18 06/15/18 History Psyllium Husk (with Sugar) 6 gm PO DAILY 06/08/18 06/15/18 History [Metamucil Powder] Allergies Allergy/AdvReac Type Severity Reaction Status Date / Time ciprofloxacin [From Cipro] Allergy Unknown Verified 06/15/18 14:24 metformin Allergy Nausea & Verified 06/15/18 14:24 Vomiting & Diarrhea atorvastatin [From Lipitor] AdvReac MUSCLE PAIN Verified 06/15/18 14:24 lisinopril AdvReac Cough Verified 06/15/18 14:24 simvastatin AdvReac MUSCLE PAIN Verified 06/15/18 14:24 paper tape Allergy blisters Uncoded 06/15/18 10:24 Physical Exam Vitals: Vital Signs Temp Pulse Pulse Resp BP Pulse Ox 06/16/18 14:24 98.0 F 92 16 143/75 97 06/16/18 07:00 99.3 F 74 16 94/58 93 L 06/16/18 01:12 99.3 F 87 18 110/63 95 06/15/18 19:51 99.3 F 92 16 110/72 94 L 06/15/18 17:45 89 16 129/79 94 L 06/15/18 17:30 86 16 118/72 96 06/15/18 17:15 75 16 118/71 94 L 06/15/18 17:00 95 16 110/71 93 L 06/15/18 16:45 95 16 109/71 94 L 06/15/18 16:30 97 16 113/68 93 L 06/15/18 16:15 93 16 113/74 97 06/15/18 16:00 92 16 107/67 98 06/15/18 15:45 93 16 110/69 98 06/15/18 15:10 73 16 159/76 100 06/15/18 14:55 73 16 158/76 100 Intake and Output 06/15/18 06/16/18 06/16/18 22:59 06:59 14:59 Intake Total 500 1450 Output Total 225 625 Balance 275 -625 1450 Intake: Intake, IV Titration 500 1000 Amount Lactated Ringers 1,000 ml 500 1000 @ 125 mls/hr IV .[facility] Rx#:[id number] Oral 450 Output: Urine 225 625 Other: Voiding Method Indwelling Catheter Indwelling Catheter Weight 122.47 kg Gen: This is a morbidly obese 62-year-old female. She is resting in bed and appears to be comfortable. No acute distress is noted. HEENT: Head is atraumatic, normocephalic. Pupils equal, round. Sclerae is anicteric. NECK: Supple. No JVD. No lymphadenopathy. No thyromegaly. LUNGS: Clear to auscultation. No wheezes or rhonchi. No intercostal retractions. HEART: Regular rate and rhythm. No murmur. ABDOMEN: Soft. Bowel sounds are present. No masses. Mild tenderness. Surgical dressing in place with no significant breakthrough bleeding or drainage. EXTREMITIES: No pedal edema. No calf tenderness. NEUROLOGICAL: Patient is awake, alert and oriented x3. Cranial nerves 2 through 12 are grossly intact. Results CBC & Chem 7: 06/16/18 08:14 06/16/18 08:14 Labs: Abnormal Lab Results - Last 24 Hours (Table) 06/09/18 06/15/18 06/15/18 Range/Units 11:11 16:14 16:14 WBC 11.2 H (3.8-10.6) k/uL Neutrophils # 10.1 H (1.3-7.7) k/uL Lymphocytes # 0.6 L (1.0-4.8) k/uL Creatinine 1.07 H (0.52-1.04) mg/dL Glucose 152 H (74-99) mg/dL Crossmatch See Detail 06/16/18 06/16/18 Range/Units 08:14 08:14 WBC (3.8-10.6) k/uL Neutrophils # 7.9 H (1.3-7.7) k/uL Lymphocytes # (1.0-4.8) k/uL Creatinine 1.18 H (0.52-1.04) mg/dL Glucose 170 H (74-99) mg/dL Crossmatch Assessment and Plan Plan: 1. Chronic diverticulitis with history of perforated diverticulum status post laparoscopic converted to open sigmoid colectomy under the care of Dr. Hidalgo. Continue current pain management. Incentive spirometry to reduce incidence of atelectasis and hospital-acquired pneumonia. Increase activity. 2. Obstructive sleep apnea. Continue CPAP. 3. Diabetes mellitus type 2. Patient will be on NovoLog scale before meals and at bedtime. Patient was taken off oral agent as her last hemoglobin A1c was 5.7. 4. Asthma mild intermittent, stable without exacerbation. The lateral nebulizer vailable if needed and Flonase will be continued. 5. Hypertension. Continue Norvasc 5 mg daily. 6. Hypothyroidism. Continue levothyroxine. 7. Gastroesophageal reflux disease and gastrointestinal prophylaxis. Pepcid. 8. Hyperlipidemia. Fenofibrate 9. History of right-sided breast cancer status post mastectomy and skin cancer , stable. 10. DVT prophylaxis. Heparin subcu. Discharge plan: Return home Impression and plan of care have been directed as dictated by the signing physician. Talya Kim nurse practitioner acting as scribe for signing physician.
[2018-06-16] MEDS: ROPIVACAINE 250 MG, fentaNYL (PF) 625 MCG in SODIUM CHLORIDE 0.9% 188 ML EPIDURAL PRN (15:42)
[2018-06-16 16:55] LABS: Glucose,Whole Blood 95 mg/dL (75-99)
[2018-06-16] MEDS: INSULIN ASPART 100 UNIT/ML 1 ML 10 ML VIAL SQ SCH ×2 (17:54→20:25)
[2018-06-16 20:15] LABS: Glucose,Whole Blood 103 mg/dL (75-99)
[2018-06-16] MEDS: HYDROmorphone 1 MG/ML 1 ML SYRINGE IVP PRN (20:45)
[2018-06-16] MEDS: FAMOTIDINE 20 MG TAB PO SCH (20:45)
[2018-06-16] MEDS: CLOTRIMAZOLE 1% CREAM 15 GM TUBE TOPICAL SCH (20:45)
[2018-06-16] MEDS: MORPHINE SULFATE 4 MG/ML SYRINGE IVP PRN (23:52)
[2018-06-17 04:42] LABS: Hemoglobin A1C 5.8 % (4.0-6.0)
[2018-06-17] MEDS: METOCLOPRAMIDE 5 MG/ML 2 ML VIAL IVP SCH ×4 (05:12→23:31)
[2018-06-17] MEDS: HEPARIN SODIUM,PORCINE 5,000 UNIT/ML 1 ML VIAL SQ SCH ×3 (05:12→20:34)
[2018-06-17] MEDS: MORPHINE SULFATE 4 MG/ML SYRINGE IVP PRN ×2 (05:12→10:29)
[2018-06-17] MEDS: LEVOTHYROXINE 100 MCG TAB PO SCH (05:12)
[2018-06-17] MEDS: LACTATED RINGERS 1,000 ML IV SCH (05:22)
[2018-06-17 07:39] LABS: Basophils % (A) 0 %; Eosinophils # (A) 0.7 k/uL (0-0.7); Eosinophils % (A) 8 %; HCT 34.8 % (34.0-46.0); HGB 11.2 gm/dL (11.4-16.0); Lymphocytes # (A) 1.4 k/uL (1.0-4.8); Lymphocytes % (A) 16 %; MCH 27.5 pg (25.0-35.0); MCHC 32.1 g/dL (31.0-37.0); MCV 85.6 fL (80.0-100.0); Mean Platelet Volume 7.1; Monocytes # (A) 0.6 k/uL (0-1.0); Monocytes % (A) 6 %; Neutrophils % (A) 68 %; Platelet Count 170 k/uL (150-450); RBC 4.07 m/uL (3.80-5.40); RDW 14.7 % (11.5-15.5); WBC 8.8 k/uL (3.8-10.6)
[2018-06-17 07:53] LABS: Glucose,Whole Blood 134 mg/dL (75-99)
[2018-06-17 07:55] LABS: Calcium 8.5 mg/dL (8.4-10.2); Potassium 3.9 mmol/L (3.5-5.1)
[2018-06-17] MEDS: INSULIN ASPART 100 UNIT/ML 1 ML 10 ML VIAL SQ SCH ×4 (08:25→20:37)
[2018-06-17] MEDS: FLUTICASONE 50MCG/SPRAY NASAL 16GM EA NOSTRIL SCH (09:04)
[2018-06-17] MEDS: CYANOCOBALAMIN 500 MCG TAB PO SCH (09:05)
[2018-06-17] MEDS: CHOLECALCIFEROL 1,000 UNIT TAB PO SCH (09:05)
[2018-06-17] MEDS: FENOFIBRATE 160 MG TAB PO SCH (09:05)
[2018-06-17] MEDS: MONTELUKAST 10 MG TAB PO SCH (09:06)
[2018-06-17] MEDS: FAMOTIDINE 20 MG TAB PO SCH ×2 (09:06→20:35)
[2018-06-17] MEDS: amLODIPine 5 MG TAB PO SCH (09:06)
--- NOTE | 2018-06-17 09:24 | P.PN ---
Progress Note - Text Date: 06/17/2018 Time: 710 The patient is status post, sigmoid colectomy, postoperative day number 2 The patient has no complaints of nausea vomiting or headache. The patient does not complain of any lower extremity numbness or weakness. The epidural is running at 10 mL per hour. VAS 3-10. The patient is requiring some intermittent IV pain medication as a supplement. The epidural will be maintained and adjusted as needed.
[2018-06-17] MEDS ORDERED: FUROSEMIDE 10 MG/ML 2 ML VIAL IV ONE (09:25)
[2018-06-17] MEDS: CLOTRIMAZOLE 1% CREAM 15 GM TUBE TOPICAL SCH ×2 (09:50→20:37)
[2018-06-17] MEDS: SODIUM CHLORIDE 0.9% 1,000 ML IV SCH ×2 (10:25→23:31)
[2018-06-17 12:08] LABS: Glucose,Whole Blood 127 mg/dL (75-99)
--- NOTE | 2018-06-17 13:37 | P.PN ---
Subjective Progress Note Date: 06/17/18 This is a 62-year-old female patient of Dr. Dallas with past medical history of diverticulitis previously needing antibiotics, diabetes mellitus type 2, hyperlipidemia, hypertension, obstructive sleep apnea on CPAP, hypothyroidism, skin cancer on her face, breast cancer status post right mastectomy and was on tamoxifen for 5 years, urinary retention status post bladder pacemaker. Patient had a recent hospitalization in March of this year for perforated diverticulum and diverticulitis with sepsis. She is now admitted under the care of Dr. Quintero status post laparoscopic sigmoid colectomy converted to open sigmoid colectomy due to chronic diverticulitis. Patient is seen one day postop. She states she was passing gas yesterday. Pain control is improved this morning. She has tolerated clear diet. Long catheter is in place. She does have a mild sore throat. CPAP is at the bedside. 06/17: OXACILLIN B3 liters nasal cannula. Patient denies any shortness of breath. She is not on home oxygen. Chest x-ray ordered and Lasix 20 mg IV push ordered. Patient's epidural is making this will be removed today with anticipated Long catheter removal later today. She states that her pain was significantly and last night with gas pain but is improved this morning. Objective - Vital Signs Vital signs: Vital Signs Temp 98.7 F 06/17/18 07:30 Pulse 86 06/17/18 07:30 Resp 16 06/17/18 07:30 BP 112/70 06/17/18 07:30 Pulse Ox 93 L 06/17/18 07:30 Intake & Output 06/16/18 06/17/18 06/17/18 18:59 06:59 18:59 Intake Total 1569.95 1250 Output Total 2100 Balance 1569.95 -850 Weight 122.47 kg Intake: Intake, IV Titration 1019.95 1250 Amount Lactated Ringers 1,000 ml 1000 1250 @ 125 mls/hr IV .Q8H [facility] Rx#:[id number] Ropivacaine 250 mg 19.95 fentaNYL (PF) 625 mcg In Sodium Chloride 0.9% 188 ml @ Per Protocol EPIDURAL .Q0M PRN Rx#: [id number] Oral 550 Output: Urine 2100 Other: Voiding Method Indwelling Catheter Indwelling Catheter Indwelling Catheter - Exam Gen: This is a morbidly obese 62-year-old female. She is resting in bed and appears to be comfortable. No acute distress is noted. HEENT: Head is atraumatic, normocephalic. Pupils equal, round. Sclerae is anicteric. NECK: Supple. No JVD. No lymphadenopathy. No thyromegaly. LUNGS: Crackles to the bases otherwise clear to auscultation. No intercostal retractions. HEART: Regular rate and rhythm. No murmur. ABDOMEN: Soft. Bowel sounds are present. No masses. Mild tenderness. Surgical dressing in place with no significant breakthrough bleeding or drainage. EXTREMITIES: No pedal edema. No calf tenderness. NEUROLOGICAL: Patient is awake, alert and oriented x3. Cranial nerves 2 through 12 are grossly intact. - Labs CBC & Chem 7: 06/17/18 07:06 06/17/18 07:06 Labs: Abnormal Lab Results - Last 24 Hours (Table) 06/16/18 06/16/18 06/16/18 Range/Units 08:14 08:14 20:13 Hgb (11.4-16.0) gm/dL Neutrophils # 7.9 H (1.3-7.7) k/uL Creatinine 1.18 H (0.52-1.04) mg/dL Glucose 170 H (74-99) mg/dL POC Glucose (mg/dL) 103 H (75-99) mg/dL 06/17/18 06/17/18 06/17/18 Range/Units 07:06 07:06 07:48 Hgb 11.2 L (11.4-16.0) gm/dL Neutrophils # (1.3-7.7) k/uL Creatinine (0.52-1.04) mg/dL Glucose 117 H (74-99) mg/dL POC Glucose (mg/dL) 134 H (75-99) mg/dL Assessment and Plan Plan: 1. Chronic diverticulitis with history of perforated diverticulum status post laparoscopic converted to open sigmoid colectomy under the care of Dr. Hidalgo. Continue current pain management. Incentive spirometry to reduce incidence of atelectasis and hospital-acquired pneumonia. Increase activity. 2. Obstructive sleep apnea. Continue CPAP. 3. Diabetes mellitus type 2. Patient will be on NovoLog scale before meals and at bedtime. Patient was taken off oral agent as her last hemoglobin A1c was 5.7. 4. Asthma mild intermittent, stable without exacerbation. The lateral nebulizer vailable if needed and Flonase will be continued. 5. Hypertension. Continue Norvasc 5 mg daily. 6. Hypothyroidism. Continue levothyroxine. 7. Gastroesophageal reflux disease and gastrointestinal prophylaxis. Pepcid. 8. Hyperlipidemia. Fenofibrate 9. History of right-sided breast cancer status post mastectomy and skin cancer , stable. 10. DVT prophylaxis. Heparin subcu. 11. Mild hypoxemia requiring oxygen. Lasix 20 mg IV given to see if there is any improvement and chest x-ray ordered. Discharge plan: Return home Impression and plan of care have been directed as dictated by the signing physician. Talya Kim nurse practitioner acting as scribe for signing physician.
--- NOTE | 2018-06-17 14:24 | P.PN ---
Subjective Progress Note Date: 06/17/18 Patient seen and examined at bedside. Had some trouble with pain control overnight, epidural was adjusted along with breakthrough pain medication. The patient did state that this did help with pain. She has not had any flatus or bowel function as of yet. Denies any nausea or vomiting. Tolerating clear liquid diet. Objective - Vital Signs Vital signs: Vital Signs Temp 98.7 F 06/17/18 07:30 Pulse 86 06/17/18 07:30 Resp 16 06/17/18 07:30 BP 112/70 06/17/18 07:30 Pulse Ox 93 L 06/17/18 07:30 Intake & Output 06/16/18 06/17/18 06/17/18 18:59 06:59 18:59 Intake Total 1569.95 1250 500 Output Total 2100 1650 Balance 1569.95 -850 -1150 Weight 122.47 kg Intake: Intake, IV Titration 1019.95 1250 Amount Lactated Ringers 1,000 ml 1000 1250 @ 125 mls/hr IV .Q8H [facility] Rx#:[id number] Ropivacaine 250 mg 19.95 fentaNYL (PF) 625 mcg In Sodium Chloride 0.9% 188 ml @ Per Protocol EPIDURAL .Q0M PRN Rx#: [id number] Oral 550 500 Output: Urine 2100 1650 Uretheral (Long) 1650 Other: Voiding Method Indwelling Catheter Indwelling Catheter Indwelling Catheter - Constitutional General appearance: Present: cooperative, no acute distress - Respiratory Details: No difficulty with respiration - Gastrointestinal Gastrointestinal Comment(s): Soft, appropriate tenderness, nondistended, no rebound, no guarding, midline incision site clean, dry and intact with surgical dressing in place - Psychiatric Psychiatric: Present: A&O x's 3, appropriate affect - Labs CBC & Chem 7: 06/17/18 07:06 06/17/18 07:06 Labs: Abnormal Lab Results - Last 24 Hours (Table) 06/16/18 06/17/18 06/17/18 Range/Units 20:13 07:06 07:06 Hgb 11.2 L (11.4-16.0) gm/dL Glucose 117 H (74-99) mg/dL POC Glucose (mg/dL) 103 H (75-99) mg/dL 06/17/18 06/17/18 Range/Units 07:48 11:44 Hgb (11.4-16.0) gm/dL Glucose (74-99) mg/dL POC Glucose (mg/dL) 134 H 127 H (75-99) mg/dL Assessment and Plan Plan: 62-year-old female, postoperative day #2 status post laparoscopic converted to open sigmoid colectomy - Continue clear liquid diet, IV fluids - Epidural has been dislodged per nursing, this was removed. Long to be removed today - Await bowel function prior to advancing diet - Local wound care - Medical consult for medical management
--- NOTE | 2018-06-17 14:58 | XR ---
EXAMINATION TYPE: XR chest 2V DATE OF EXAM: 06/17/2018 COMPARISON: NONE HISTORY: Hypoxemia, shortness of breath TECHNIQUE: Frontal and lateral views of the chest are obtained. FINDINGS: Patchy basilar density is present retrocardiac region, lung volumes are somewhat low. No p neumothorax or evident effusion. Postop changes are noted to the right chest, surgical clips are pres ent, patient is post right mastectomy. Heart size at the upper limit of normal. IMPRESSION: Findings may represent basilar atelectasis, correlate for left lower lobe pneumonia. Fol low-up is recommended. Expiratory exam suspected.
[2018-06-17 16:55] LABS: Glucose,Whole Blood 130 mg/dL (75-99)
[2018-06-17] MEDS: HYDROcodone/APAP 5-325MG 1 EACH TAB PO PRN (18:49)
[2018-06-17 19:52] LABS: Glucose,Whole Blood 144 mg/dL (75-99)
[2018-06-18] MEDS: HYDROcodone/APAP 5-325MG 1 EACH TAB PO PRN (02:43)
[2018-06-18] MEDS: HEPARIN SODIUM,PORCINE 5,000 UNIT/ML 1 ML VIAL SQ SCH ×2 (05:28→12:05)
[2018-06-18] MEDS: LEVOTHYROXINE 100 MCG TAB PO SCH (05:28)
[2018-06-18] MEDS: METOCLOPRAMIDE 5 MG/ML 2 ML VIAL IVP SCH ×2 (05:31→12:05)
--- NOTE | 2018-06-18 06:15 | P.PN ---
Subjective Progress Note Date: 06/18/18 Pt seen and examined at bedside. States pain and cramping are improving. Denies nausea or vomiting. States she feels rumbling and gurgling within her abdomen but has not had flatus yet. She is ambulating. Long was removed yesterday and she is urinating without any difficulty. She is chewing gum. Objective - Vital Signs Vital signs: Vital Signs Temp 98.6 F 06/18/18 01:40 Pulse 84 06/18/18 01:40 Resp 16 06/18/18 01:40 BP 130/78 06/18/18 01:40 Pulse Ox 92 L 06/18/18 01:40 Intake & Output 06/17/18 06/17/18 06/18/18 06:59 18:59 06:59 Intake Total 1250 500 937.5 Output Total 2100 2150 Balance -850 -1650 937.5 Weight 122.47 kg Intake: Intake, IV Titration 1250 937.5 Amount Lactated Ringers 1,000 ml 1250 @ 125 mls/hr IV .Q8H [facility] Rx#:[id number] Sodium Chloride 0.9% 1, 937.5 000 ml @ 75 mls/hr IV . [id number] [facility] Rx#:[id number] Oral 500 Output: Urine 2100 2150 Uretheral (Long) 2150 Other: Voiding Method Indwelling Catheter Toilet Toilet Diaper # Voids 2 - Constitutional General appearance: Present: cooperative, no acute distress - Respiratory Details: No difficulty with respiration - Gastrointestinal Gastrointestinal Comment(s): Soft, appropriate tenderness, nondistended, no rebound, no guarding - Psychiatric Psychiatric: Present: A&O x's 3 - Labs CBC & Chem 7: 06/17/18 07:06 06/17/18 07:06 Labs: Abnormal Lab Results - Last 24 Hours (Table) 06/17/18 06/17/18 06/17/18 Range/Units 07:06 07:06 07:48 Hgb 11.2 L (11.4-16.0) gm/dL Glucose 117 H (74-99) mg/dL POC Glucose (mg/dL) 134 H (75-99) mg/dL 06/17/18 06/17/18 06/17/18 Range/Units 11:44 16:50 19:51 Hgb (11.4-16.0) gm/dL Glucose (74-99) mg/dL POC Glucose (mg/dL) 127 H 130 H 144 H (75-99) mg/dL Assessment and Plan Plan: 62-year-old female, postoperative day #3 status post laparoscopic converted to open sigmoid colectomy - Advance to soft diet - Urinating without difficulty after Long removed - Await bowel function prior - Continue to increase activity and chew gum - Local wound care - Medical consult for medical management
[2018-06-18 06:59] LABS: Basophils % (A) 0 %; Eosinophils # (A) 0.9 k/uL (0-0.7); Eosinophils % (A) 13 %; HCT 35.9 % (34.0-46.0); HGB 11.5 gm/dL (11.4-16.0); Hypochromasia Slight; Lymphocytes # (A) 1.3 k/uL (1.0-4.8); Lymphocytes % (A) 19 %; MCH 27.6 pg (25.0-35.0); MCHC 32.1 g/dL (31.0-37.0); MCV 85.9 fL (80.0-100.0); Mean Platelet Volume 6.9; Monocytes # (A) 0.4 k/uL (0-1.0); Monocytes % (A) 6 %; Neutrophils # (A) 4.2 k/uL (1.3-7.7); Neutrophils % (A) 61 %; Platelet Count 187 k/uL (150-450); RBC 4.18 m/uL (3.80-5.40); RDW 14.2 % (11.5-15.5)
[2018-06-18 07:01] LABS: Glucose,Whole Blood 117 mg/dL (75-99)
[2018-06-18 07:06] LABS: Calcium 8.8 mg/dL (8.4-10.2); Potassium 3.8 mmol/L (3.5-5.1)
[2018-06-18] MEDS: INSULIN ASPART 100 UNIT/ML 1 ML 10 ML VIAL SQ SCH ×3 (07:10→17:20)
[2018-06-18] MEDS: amLODIPine 5 MG TAB PO SCH (09:00)
[2018-06-18] MEDS: CHOLECALCIFEROL 1,000 UNIT TAB PO SCH (09:00)
[2018-06-18] MEDS: FAMOTIDINE 20 MG TAB PO SCH (09:00)
[2018-06-18] MEDS: FLUTICASONE 50MCG/SPRAY NASAL 16GM EA NOSTRIL SCH (09:00)
[2018-06-18] MEDS: FENOFIBRATE 160 MG TAB PO SCH (09:00)
[2018-06-18] MEDS: MONTELUKAST 10 MG TAB PO SCH (09:00)
[2018-06-18] MEDS: CLOTRIMAZOLE 1% CREAM 15 GM TUBE TOPICAL SCH (09:01)
[2018-06-18] MEDS: CYANOCOBALAMIN 500 MCG TAB PO SCH (09:03)
[2018-06-18] MEDS ORDERED: SIMETHICONE 40 MG/0.6 ML DROPS 2,000 MG/30 ML BOTTLE PO PRN (09:50)
[2018-06-18 12:33] LABS: Glucose,Whole Blood 109 mg/dL (75-99)
[2018-06-18] MEDS: SODIUM CHLORIDE 0.9% 1,000 ML IV SCH (12:36)
--- NOTE | 2018-06-18 14:29 | P.PN ---
Subjective Progress Note Date: 06/18/18 This is a 62-year-old female patient of Dr. Dallas with past medical history of diverticulitis previously needing antibiotics, diabetes mellitus type 2, hyperlipidemia, hypertension, obstructive sleep apnea on CPAP, hypothyroidism, skin cancer on her face, breast cancer status post right mastectomy and was on tamoxifen for 5 years, urinary retention status post bladder pacemaker. Patient had a recent hospitalization in March of this year for perforated diverticulum and diverticulitis with sepsis. She is now admitted under the care of Dr. Quintero status post laparoscopic sigmoid colectomy converted to open sigmoid colectomy due to chronic diverticulitis. Patient is seen one day postop. She states she was passing gas yesterday. Pain control is improved this morning. She has tolerated clear diet. Long catheter is in place. She does have a mild sore throat. CPAP is at the bedside. 06/17: OXACILLIN B3 liters nasal cannula. Patient denies any shortness of breath. She is not on home oxygen. Chest x-ray ordered and Lasix 20 mg IV push ordered. Patient's epidural is making this will be removed today with anticipated Long catheter removal later today. She states that her pain was significantly and last night with gas pain but is improved this morning. 06/18: Patient is very excited as she states Dr. Quintero told her she would be going home later this afternoon. She states she has passed gas and has had 2 bowel movements. She denies any blood in her stools. She is tolerating a soft diet without any difficulty. Pulse ox is 96% on room air. Chest x-ray shows basilar atelectasis, correlate for left lower lobe pneumonia. She is status post Lasix yesterday of 20 mg IV. She denies any fever or chills. Objective - Vital Signs Vital signs: Vital Signs Temp 98.6 F 06/18/18 07:00 Pulse 76 06/18/18 07:00 Resp 06/18/18 07:00 BP 116/69 06/18/18 07:00 Pulse Ox 96 06/18/18 07:00 Intake & Output 06/17/18 06/18/18 06/18/18 18:59 06:59 18:59 Intake Total 500 937.5 630 Output Total 2150 Balance -1650 937.5 630 Weight 122.47 kg Intake: Intake, IV Titration 937.5 450 Amount Sodium Chloride 0.9% 1, 937.5 450 000 ml @ 75 mls/hr IV . [id number] [facility] Rx#:[id number] Oral 500 180 Output: Urine 2150 Uretheral (Long) 2150 Other: Voiding Method Toilet Toilet Diaper # Voids 2 2 # Bowel Movements 2 - Exam Gen: This is a morbidly obese 62-year-old female. She is resting in bed and appears to be comfortable. No acute distress is noted. HEENT: Head is atraumatic, normocephalic. Pupils equal, round. Sclerae is anicteric. NECK: Supple. No JVD. No lymphadenopathy. No thyromegaly. LUNGS: Crackles to the bases otherwise clear to auscultation. No intercostal retractions. HEART: Regular rate and rhythm. No murmur. ABDOMEN: Soft. Bowel sounds are present. No masses. No tenderness. Surgical dressing in place with no significant breakthrough bleeding or drainage. EXTREMITIES: No pedal edema. No calf tenderness. NEUROLOGICAL: Patient is awake, alert and oriented x3. Cranial nerves 2 through 12 are grossly intact. - Labs CBC & Chem 7: 06/18/18 06:17 06/18/18 06:17 Labs: Abnormal Lab Results - Last 24 Hours (Table) 06/17/18 06/17/18 06/18/18 Range/Units 16:50 19:51 06:17 Eosinophils # 0.9 H (0-0.7) k/uL Glucose (74-99) mg/dL POC Glucose (mg/dL) 130 H 144 H (75-99) mg/dL 06/18/18 06/18/18 06/18/18 Range/Units 06:17 06:59 12:32 Eosinophils # (0-0.7) k/uL Glucose 110 H (74-99) mg/dL POC Glucose (mg/dL) 117 H 109 H (75-99) mg/dL Assessment and Plan Plan: 1. Chronic diverticulitis with history of perforated diverticulum status post laparoscopic converted to open sigmoid colectomy under the care of Dr. Hidalgo. Continue current pain management. Incentive spirometry to reduce incidence of atelectasis and hospital-acquired pneumonia. Increase activity. 2. Obstructive sleep apnea. Continue CPAP. 3. Diabetes mellitus type 2. Patient will be on NovoLog scale before meals and at bedtime. Patient was taken off oral agent as her last hemoglobin A1c was 5.7. 4. Asthma mild intermittent, stable without exacerbation. The lateral nebulizer vailable if needed and Flonase will be continued. 5. Hypertension. Continue Norvasc 5 mg daily. 6. Hypothyroidism. Continue levothyroxine. 7. Gastroesophageal reflux disease and gastrointestinal prophylaxis. Pepcid. 8. Hyperlipidemia. Fenofibrate 9. History of right-sided breast cancer status post mastectomy and skin cancer , stable. 10. DVT prophylaxis. Heparin subcu. 11. Mild hypoxemia requiring oxygen most likely secondary to atelectasis and IV fluids. Lasix 20 mg IV given to see if there is any improvement and chest x- ray ordered. Discharge plan: Return home Impression and plan of care have been directed as dictated by the signing physician. Talya Kim nurse practitioner acting as scribe for signing physician.
[2018-06-18 16:23] VITALS: BP 124/77; PULSE 93; RESP 16; TEMP 98.1
[2018-06-18 17:20] LABS: Glucose,Whole Blood 111 mg/dL (75-99)
--- NOTE | 2018-06-18 17:47 | P.DS ---
Providers Date of admission: 06/15/18 09:59 Attending physician: Camilo Quintero DO Consults: 06/16/18 08:05 Consult Physician Routine Consulting Provider: Saud Montenegro Reason/Comments: medical consult Do you want consulting provider notified?: Yes Primary care physician: Jesse Dallas MD Hospital Course: The patient presented to the hospital for an elective sigmoid colectomy secondary to chronic diverticulitis. Postoperatively, the patient was sent to the medical surgical floor and had an epidural in place for pain control and was started on a clear liquid diet. Pain was managed over the next couple of days and epidural was removed postoperative day #2. At that time Long catheter was removed. The patient began having bowel function and diet was advanced. The patient is deemed stable from a surgical standpoint. She was followed by medical asst throughout her stay. Procedures: Laparoscopic sigmoid colectomy, converted to open Patient Condition at Discharge: Good Plan - Discharge Summary Discharge Rx Participant: Yes New Discharge Prescriptions: New Simethicone 40 mg/0.6 ml Drops [Mylicon Drops] 40 mg PO QID PRN ml PRN Reason: Gi Upset traMADol HCl [Ultram] 100 mg PO Q6HR PRN 3 Days #24 tab PRN Reason: Pain Continue Vitamin E (Dl,Tocopheryl Acet) [Vitamin E] 400 unit PO DAILY Ranitidine HCl 150 mg PO BID Cholecalciferol [Vitamin D3] 5,000 unit PO DAILY Albuterol Sulfate [Proair Hfa] 2 puff INHALATION RT-QID PRN PRN Reason: Shortness Of Breath Ketoconazole 2% Cream [Nizoral 2%] 1 applic TOPICAL BID Glucosam/Manan-Msm1/C/Robin/Bosw [Glucosamine-Chondroitin Tablet] 1 tab PO DAILY Fluticasone Nasal [place]zier [Flonase Nasal [place]] 1 spray EA NOSTRIL DAILY Fish Oil/Dha/Epa [Fish Oil 1,200 mg Fish Oil] 1 cap PO BID Diclofenac Sodium [Voltaren] 75 mg PO BID Levothyroxine Sodium [Synthroid] 100 mcg PO DAILY Fenofibrate Nanocrystallized [Tricor] 145 mg PO DAILY Desloratadine 5 mg PO DAILY Cyanocobalamin (Vitamin B-12) [Vitamin B12] 5,000 mcg PO DAILY amLODIPine [Norvasc] 5 mg PO DAILY Ibuprofen [Motrin] 600 mg PO QID PRN tab PRN Reason: Fever Montelukast [Singulair] 10 mg PO DAILY Psyllium Husk (with Sugar) [Metamucil Powder] 6 gm PO DAILY Discontinued Acetaminophen Tab [Tylenol] 650 mg PO Q6HR PRN tab PRN Reason: Fever Discharge Medication List Albuterol Sulfate [Proair Hfa] 2 puff INHALATION RT-QID PRN 03/22/18 [History] Cholecalciferol [Vitamin D3] 5,000 unit PO DAILY 03/22/18 [History] Cyanocobalamin (Vitamin B-12) [Vitamin B12] 5,000 mcg PO DAILY 03/22/18 [History ] Desloratadine 5 mg PO DAILY 03/22/18 [History] Diclofenac Sodium [Voltaren] 75 mg PO BID 03/22/18 [History] Fenofibrate Nanocrystallized [Tricor] 145 mg PO DAILY 03/22/18 [History] Fish Oil/Dha/Epa [Fish Oil 1,200 mg Fish Oil] 1 cap PO BID 03/22/18 [History] Fluticasone Nasal [place] [Flonase Nasal [place]zier] 1 spray EA NOSTRIL DAILY 03/22/18 [History] Glucosam/Manan-Msm1/C/Robin/Bosw [Glucosamine-Chondroitin Tablet] 1 tab PO DAILY 03/22/18 [History] Ketoconazole 2% Cream [Nizoral 2%] 1 applic TOPICAL BID 03/22/18 [History] Levothyroxine Sodium [Synthroid] 100 mcg PO DAILY 03/22/18 [History] Ranitidine HCl 150 mg PO BID 03/22/18 [History] Vitamin E (Dl,Tocopheryl Acet) [Vitamin E] 400 unit PO DAILY 03/22/18 [History] amLODIPine [Norvasc] 5 mg PO DAILY 03/22/18 [History] Ibuprofen [Motrin] 600 mg PO QID PRN tab 03/26/18 [Rx] Montelukast [Singulair] 10 mg PO DAILY 06/08/18 [History] Psyllium Husk (with Sugar) [Metamucil Powder] 6 gm PO DAILY 06/08/18 [History] Simethicone 40 mg/0.6 ml Drops [Mylicon Drops] 40 mg PO QID PRN ml 06/18/18 [Rx ] traMADol HCl [Ultram] 100 mg PO Q6HR PRN 3 Days #24 tab 06/18/18 [Rx] Follow up Appointment(s)/Referral(s): Jesse Dallas MD [Primary Care Provider] - 06/22/18 3:15 pm Camilo Quintero DO [Doctor of Osteopathic Medicine] - 06/28/18 10:45 am Activity/Diet/Wound Care/Special Instructions: Continue to increase activity daily Okay to shower, no baths or swimming No driving until seen by surgeon No lifting greater than 5 pounds until seen by surgeon Discharge Disposition: HOME SELF-CARE
== END 2018-06-18 18:15 | disposition home or self-care (01) | DRG 330 ==
LOC: 2ORMAIN 09:59 → 3SUR 13:40
PROVIDERS: ADMIT Surgery; ATTEND Surgery
PROC: 0DJD4ZZ Inspection of Lower Intestinal Tract, Percutaneous Endoscopic Approach (ICD-10-PCS; 2018-06-15)
PROC: 0DTN0ZZ Resection of Sigmoid Colon, Open Approach (ICD-10-PCS; principal; 2018-06-15 11:30)
DX: K57.32 Diverticulitis of large intestine without perforation or abscess without bleeding (principal); J98.11 Atelectasis; Z68.41 Body mass index [BMI] 40.0-44.9, adult; E66.01 Morbid (severe) obesity due to excess calories; R09.02 Hypoxemia; E03.9 Hypothyroidism, unspecified; E11.9 Type 2 diabetes mellitus without complications; J45.909 Unspecified asthma, uncomplicated; K21.9 Gastro-esophageal reflux disease without esophagitis; E78.5 Hyperlipidemia, unspecified; I10 Essential (primary) hypertension; G47.33 Obstructive sleep apnea (adult) (pediatric); Z53.31 Laparoscopic surgical procedure converted to open procedure; Z79.890 Hormone replacement therapy; Z79.51 Long term (current) use of inhaled steroids; Z79.899 Other long term (current) drug therapy; Z85.828 Personal history of other malignant neoplasm of skin; Z85.3 Personal history of malignant neoplasm of breast; Z90.11 Acquired absence of right breast and nipple; Z96.652 Presence of left artificial knee joint; Z96.9 Presence of functional implant, unspecified; Z90.710 Acquired absence of both cervix and uterus; Z82.0 Family history of epilepsy and other diseases of the nervous system; Z80.42 Family history of malignant neoplasm of prostate; Z80.8 Family history of malignant neoplasm of other organs or systems; Z83.2 Family history of diseases of the blood and blood-forming organs and certain disorders involving the immune mechanism; Z81.3 Family history of other psychoactive substance abuse and dependence
CPT/HCPCS: 71046; 80048; 83036; 85025; 86850; 86900; 86901; 86920; 88307

== ENCOUNTER 2018-06-25 04:27 | Emergency (ER) | payer BC ==
[2018-06-25 04:45] LABS: Glucose,Whole Blood 249 mg/dL (75-99)
[2018-06-25] MEDS ORDERED: MORPHINE SULFATE 4 MG/ML SYRINGE IV STA (04:50)
[2018-06-25] MEDS ORDERED: LORazepam 2 MG/ML INJ IV STA ×2 (04:50→06:19)
[2018-06-25] MEDS ORDERED: SODIUM CHLORIDE 0.9% 1,000 ML IV ONE (04:51)
--- NOTE | 2018-06-25 04:52 | ED ---
SOB HPI - General Chief Complaint: Shortness of Breath Stated Complaint: possible PE Time Seen by Provider: 06/25/18 04:35 Source: patient, RN/MD, EMS, RN notes reviewed, old records reviewed Mode of arrival: EMS Limitations: physical limitation (Severe dyspnea) - History of Present Illness Initial Comments: This patient is 62-year-old woman transferred here from outside hospital for worsening shortness of breath. She was having some mild shortness of breath for 1-2 days but then became acutely much worse this evening. The patient was denying any chest pain. She did have a sigmoid colectomy performed June 15 , at this facility by Dr. Quintero, for diverticular disease. MD Complaint: shortness of breath Onset/Timin -: days(s) - Related Data Home Medications Medication Instructions Recorded Confirmed Albuterol Sulfate [Proair Hfa] 2 puff INHALATION RT-QID PRN 03/22/18 06/15/18 Cholecalciferol [Vitamin D3] 5,000 unit PO DAILY 03/22/18 06/15/18 Cyanocobalamin (Vitamin B-12) 5,000 mcg PO DAILY 03/22/18 06/15/18 [Vitamin B12] Desloratadine 5 mg PO DAILY 03/22/18 06/15/18 Diclofenac Sodium [Voltaren] 75 mg PO BID 03/22/18 06/15/18 Fenofibrate Nanocrystallized 145 mg PO DAILY 03/22/18 06/15/18 [Tricor] Fish Oil/Dha/Epa [Fish Oil 1,200 1 cap PO BID 03/22/18 06/15/18 mg Fish Oil] Fluticasone Nasal [place] [Flonase 1 spray EA NOSTRIL DAILY 03/22/18 06/15/18 Nasal [place]] Glucosam/Manan-Msm1/C/Robin/Bosw 1 tab PO DAILY 03/22/18 06/15/18 [Glucosamine-Chondroitin Tablet] Ketoconazole 2% Cream [Nizoral 2%] 1 applic TOPICAL BID 03/22/18 06/15/18 Levothyroxine Sodium [Synthroid] 100 mcg PO DAILY 03/22/18 06/15/18 Ranitidine HCl 150 mg PO BID 03/22/18 06/15/18 Vitamin E (Dl,Tocopheryl Acet) 400 unit PO DAILY 03/22/18 06/15/18 [Vitamin E] amLODIPine [Norvasc] 5 mg PO DAILY 03/22/18 06/15/18 Montelukast [Singulair] 10 mg PO DAILY 06/08/18 06/15/18 Psyllium Husk (with Sugar) 6 gm PO DAILY 06/08/18 06/15/18 [Metamucil Powder] Previous Rx's Medication Instructions Recorded Ibuprofen [Motrin] 600 mg PO QID PRN tab 03/26/18 Simethicone 40 mg/0.6 ml Drops 40 mg PO QID PRN ml 06/18/18 [Mylicon Drops] traMADol HCl [Ultram] 100 mg PO Q6HR PRN 3 Days #24 tab 06/18/18 Allergies Allergy/AdvReac Type Severity Reaction Status Date / Time ciprofloxacin [From Cipro] Allergy Unknown Verified 06/25/18 04:45 metformin Allergy Nausea & Verified 06/25/18 04:45 Vomiting & Diarrhea atorvastatin [From Lipitor] AdvReac MUSCLE PAIN Verified 06/25/18 04:45 lisinopril AdvReac Cough Verified 06/25/18 04:45 simvastatin AdvReac MUSCLE PAIN Verified 06/25/18 04:45 paper tape Allergy blisters Uncoded 06/25/18 04:45 Review of Systems ROS Statement: Those systems with pertinent positive or pertinent negative responses have been documented in the HPI. ROS Other: All systems not noted in ROS Statement are negative. Limitations: ROS unobtainable due to patients medical condition (Dyspnea) Constitutional: Denies: fever, chills Respiratory: Reports: dyspnea. Denies: cough, wheezes, hemoptysis Cardiovascular: Reports: orthopnea. 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 History of Any Multi-Drug Resistant Organisms: None Reported Past Surgical History: Bladder Surgery, Hysterectomy, Orthopedic Surgery, Uterine Ablation Additional Past Surgical History / Comment(s): "Pacemaker in bladder" can be turned off prior to surgeries, right mastectomy, left total knee arthroplasty, right carpal tunnel release, christiano lasik surgery, vagina reconstructed Past Anesthesia/Blood Transfusion Reactions: Previous Problems w/ Anesthesia Additional Past Anesthesia/Blood Transfusion Reaction / Comment(s): "takes a while for me to come out" Past Psychological History: No Psychological Hx Reported Smoking Status: Never smoker Past Alcohol Use History: Rare Past Drug Use History: None Reported - Past Family History Mother Family Medical History: Dementia Additional Family Medical History / Comment(s): Mother at age 78 from Alzheimer's dementia. Father Family Medical History: Cancer, Deep Vein Thrombosis (DVT) Additional Family Medical History / Comment(s): Father at age 82 with history of prostate cancer with metastatic disease to bone. Brother(s) Additional Family Medical History / Comment(s): Patient has 1 brother that has "drug problems". Patient has 2 children that have no major medical problems. General Exam Limitations: physical limitation General appearance: alert, in distress, obese Head exam: Present: atraumatic, normocephalic Eye exam: Present: normal appearance. Absent: scleral icterus, conjunctival injection ENT exam: Present: mucous membranes dry Neck exam: Present: normal inspection Respiratory exam: Present: respiratory distress. Absent: wheezes, rales, rhonchi, stridor, accessory muscle use, decreased breath sounds, prolonged expiratory Cardiovascular Exam: Present: normal rhythm, tachycardia, normal heart sounds. Absent: systolic murmur, diastolic murmur, rubs, gallop GI/Abdominal exam: Present: soft, other (The patient's surgical incisions are clean dry and intact without any abnormal erythema.). Absent: distended, tenderness, guarding, rebound, rigid, mass Extremities exam: Present: normal inspection, normal capillary refill. Absent: pedal edema, calf tenderness Neurological exam: Present: alert Skin exam: Present: warm, dry, intact, mottled. Absent: rash Course Vital Signs 06/25/18 06/25/18 06/25/18 04:41 04:51 04:59 Temperature 97.0 F L 97.5 F L Pulse Rate 116 H 116 H Pulse Rate [ 116 H Eap Specialist ] Respiratory 40 H 40 H 40 H Rate Blood Pressure 133/76 120/81 O2 Sat by Pulse 95 98 Oximetry 06/25/18 06/25/18 06/25/18 05:25 05:46 06:02 Temperature Pulse Rate 112 H 113 H 110 H Pulse Rate [ Eap Specialist ] Respiratory 43 H 40 H 39 H Rate Blood Pressure 126/55 120/91 123/85 O2 Sat by Pulse 97 100 96 Oximetry - Reevaluation(s) Reevaluation #1: 06/25/18 06:03 Have paged our air deodorizer servicer to discuss further treatment options for patient with massive bilateral PE. Though have discussed with Dr. Kwan at [facility] regarding possibility of transfer for possible Ekos procedure. She is contacting the interventionalist there and will call back. 06/25/18 06:07 Reevaluation #2: 06/25/18 07:45 I while the patient was in the process of being ready for transfer to [facility] for probable endovascular intervention, the patient bradyed down and lost blood pressure. ACLS protocol again followed, and the patient didn't regain pulse and blood pressure briefly but then bradyed down again and we were not able to regain a rhythm despite multiple rounds of medications and CPR. Patient pronounced at 0731. I did inform the patient's by phone. I did discuss the case with the medical assisting instructor. Procedures - Intubation Time Out Performed: Yes Sedative: Etomidate Paralytic: Succinylcholine Laryngoscope: Tracy Size: 3 ET Tube Size: 8 ET Tube Uncuffed: No Tube Secured Depth (cm): 21 Tube Placement Confirmation: visualized tube passing through cords, equal breath sounds bilaterally, no breath sounds over epigastrium Patient Tolerated Procedure: other Intubation Complications: hypotension Additional Comments: After intubation, the patient did not have detectable pulse or blood pressure and CPR was started, patient was given 1 mg of epinephrine and 1 amp of bicarb with return of palpable pulses and a detectable blood pressure. Medical Decision Making - Medical Decision Making Patient is 62-year-old woman with severe dyspnea, 10 days post surgery following sigmoid colectomy. The patient found to have massive bilateral pulmonary embolism. There is evidence of RV strain on the CAT scan. As mentioned above, discussed with our air deodorizer servicer and also with the ER physician at [facility] where they desire to be transferred. Dr. Kwan spoke with their interventional list and they will accept the patient there. Discussed the extremely guarded prognosis with patient's . The patient is intubated for respiratory failure, as she is tiring here and has respiratory acidosis. Please see the intubation note. During intubation, the patient did become hypotensive, with no detectable blood pressure or palpable pulse. She did not lose heart rhythm, but did become bradycardic. Patient had CPR for 2 minutes, with one round of epinephrine and bicarb, and there was return of palpable pulses and blood pressure. Discussed episode with patient's . He states he is leaving to go to the transfer hospital. - Lab Data Result diagrams: 06/25/18 04:53 06/25/18 04:53 Lab Results 06/25/18 06/25/18 06/25/18 Range/Units 04:35 04:53 04:53 WBC (3.8-10.6) k/uL RBC (3.80-5.40) m/uL Hgb (11.4-16.0) gm/dL Hct (34.0-46.0) % MCV (80.0-100.0) fL MCH (25.0-35.0) pg MCHC (31.0-37.0) g/dL RDW (11.5-15.5) % Plt Count (150-450) k/uL Neutrophils % % Lymphocytes % % Monocytes % % Eosinophils % % Basophils % % Neutrophils # (1.3-7.7) k/uL Lymphocytes # (1.0-4.8) k/uL Monocytes # (0-1.0) k/uL Eosinophils # (0-0.7) k/uL Basophils # (0-0.2) k/uL Hypochromasia PT (9.0-12.0) sec INR (<1.2) APTT (22.0-30.0) sec VBG pH 7.14 L* (7.31-7.41) VBG pCO2 50 (37-51) mmHg VBG HCO3 16 L (24-28) mmol/L Sodium (137-145) mmol/L Potassium (3.5-5.1) mmol/L Chloride (98-107) mmol/L Carbon Dioxide (22-30) mmol/L Anion Gap mmol/L BUN (7-17) mg/dL Creatinine (0.52-1.04) mg/dL Est GFR (CKD-EPI)AfAm (>60 ml/min/1.73 sqM) Est GFR (CKD-EPI)NonAf (>60 ml/min/1.73 sqM) Glucose (74-99) mg/dL POC Glucose (mg/dL) 249 H (75-99) mg/dL POC Glu Certified Pathology Assistant ID Jannette Horvath Plasma Lactic Acid Erich (0.7-2.0) mmol/L Calcium (8.4-10.2) mg/dL Total Bilirubin (0.2-1.3) mg/dL AST (14-36) U/L ALT (9-52) U/L Alkaline Phosphatase (38-126) U/L Total Creatine Kinase 101 (30-135) U/L CK-MB (CK-2) 3.0 H (0.0-2.4) ng/mL CK-MB (CK-2) Rel Index 3.0 Troponin I 0.827 H* (0.000-0.034) ng/mL NT-Pro-B Natriuret Pep pg/mL Total Protein (6.3-8.2) g/dL Albumin (3.5-5.0) g/dL 06/25/18 06/25/18 06/25/18 Range/Units 04:53 04:53 04:53 WBC 19.7 H (3.8-10.6) k/uL RBC 4.74 (3.80-5.40) m/uL Hgb 12.9 (11.4-16.0) gm/dL Hct 42.1 (34.0-46.0) % MCV 88.8 (80.0-100.0) fL MCH 27.3 (25.0-35.0) pg MCHC 30.7 L (31.0-37.0) g/dL RDW 15.4 (11.5-15.5) % Plt Count 319 (150-450) k/uL Neutrophils % 74 % Lymphocytes % 18 % Monocytes % 4 % Eosinophils % 2 % Basophils % 1 % Neutrophils # 14.5 H (1.3-7.7) k/uL Lymphocytes # 3.5 (1.0-4.8) k/uL Monocytes # 0.7 (0-1.0) k/uL Eosinophils # 0.5 (0-0.7) k/uL Basophils # 0.1 (0-0.2) k/uL Hypochromasia Marked PT (9.0-12.0) sec INR (<1.2) APTT (22.0-30.0) sec VBG pH (7.31-7.41) VBG pCO2 (37-51) mmHg VBG HCO3 (24-28) mmol/L Sodium 144 (137-145) mmol/L Potassium 4.3 (3.5-5.1) mmol/L Chloride 113 H (98-107) mmol/L Carbon Dioxide 17 L (22-30) mmol/L Anion Gap 14 mmol/L BUN 20 H (7-17) mg/dL Creatinine 1.82 H (0.52-1.04) mg/dL Est GFR (CKD-EPI)AfAm 34 (>60 ml/min/1.73 sqM) Est GFR (CKD-EPI)NonAf 29 (>60 ml/min/1.73 sqM) Glucose 266 H (74-99) mg/dL POC Glucose (mg/dL) (75-99) mg/dL POC Glu Certified Pathology Assistant ID Plasma Lactic Acid Erich (0.7-2.0) mmol/L Calcium 8.6 (8.4-10.2) mg/dL Total Bilirubin 0.8 (0.2-1.3) mg/dL AST 147 H (14-36) U/L ALT 83 H (9-52) U/L Alkaline Phosphatase 71 (38-126) U/L Total Creatine Kinase (30-135) U/L CK-MB (CK-2) (0.0-2.4) ng/mL CK-MB (CK-2) Rel Index Troponin I (0.000-0.034) ng/mL NT-Pro-B Natriuret Pep 8270 pg/mL Total Protein 6.7 (6.3-8.2) g/dL Albumin 3.9 (3.5-5.0) g/dL 06/25/18 06/25/18 Range/Units 04:53 04:53 WBC (3.8-10.6) k/uL RBC (3.80-5.40) m/uL Hgb (11.4-16.0) gm/dL Hct (34.0-46.0) % MCV (80.0-100.0) fL MCH (25.0-35.0) pg MCHC (31.0-37.0) g/dL RDW (11.5-15.5) % Plt Count (150-450) k/uL Neutrophils % % Lymphocytes % % Monocytes % % Eosinophils % % Basophils % % Neutrophils # (1.3-7.7) k/uL Lymphocytes # (1.0-4.8) k/uL Monocytes # (0-1.0) k/uL Eosinophils # (0-0.7) k/uL Basophils # (0-0.2) k/uL Hypochromasia PT 12.0 (9.0-12.0) sec INR 1.3 H (<1.2) APTT 39.0 H (22.0-30.0) sec VBG pH (7.31-7.41) VBG pCO2 (37-51) mmHg VBG HCO3 (24-28) mmol/L Sodium (137-145) mmol/L Potassium (3.5-5.1) mmol/L Chloride (98-107) mmol/L Carbon Dioxide (22-30) mmol/L Anion Gap mmol/L BUN (7-17) mg/dL Creatinine (0.52-1.04) mg/dL Est GFR (CKD-EPI)AfAm (>60 ml/min/1.73 sqM) Est GFR (CKD-EPI)NonAf (>60 ml/min/1.73 sqM) Glucose (74-99) mg/dL POC Glucose (mg/dL) (75-99) mg/dL POC Glu Certified Pathology Assistant ID Plasma Lactic Acid Erich 4.7 H* (0.7-2.0) mmol/L Calcium (8.4-10.2) mg/dL Total Bilirubin (0.2-1.3) mg/dL AST (14-36) U/L ALT (9-52) U/L Alkaline Phosphatase (38-126) U/L Total Creatine Kinase (30-135) U/L CK-MB (CK-2) (0.0-2.4) ng/mL CK-MB (CK-2) Rel Index Troponin I (0.000-0.034) ng/mL NT-Pro-B Natriuret Pep pg/mL Total Protein (6.3-8.2) g/dL Albumin (3.5-5.0) g/dL - EKG Data -: EKG Interpreted by Me EKG shows normal: sinus rhythm, axis (Left axis) Rate: tachycardia (Rate 1:15 bpm) Disposition Clinical Impression: Pulmonary embolism, Acute respiratory failure, Lactic acidosis Disposition: OTHER INSTITUTION NOT DEFINED Condition: Critical Is patient prescribed a controlled substance at d/c from ED?: No Referrals: None,Stated [REFERRING] - 1-2 days
[2018-06-25] MEDS ORDERED: HEPARIN SODIUM,PORCINE 5,000 UNIT/ML 1 ML VIAL IV PRN (05:22)
[2018-06-25] MEDS ORDERED: HEPARIN SOD,PORK IN 0.45% NACL 25,000 UNIT in 0.45% NACL 1 500ML.BAG IV SCH (05:30)
[2018-06-25 05:37] LABS: Basophils # (A) 0.1 k/uL (0-0.2); Basophils % (A) 1 %; Eosinophils # (A) 0.5 k/uL (0-0.7); Eosinophils % (A) 2 %; HCT 42.1 % (34.0-46.0); HGB 12.9 gm/dL (11.4-16.0); Hypochromasia Marked; Lymphocytes # (A) 3.5 k/uL (1.0-4.8); Lymphocytes % (A) 18 %; MCH 27.3 pg (25.0-35.0); MCHC 30.7 g/dL (31.0-37.0); MCV 88.8 fL (80.0-100.0); Mean Platelet Volume 7.2; Monocytes # (A) 0.7 k/uL (0-1.0); Monocytes % (A) 4 %; Neutrophils # (A) 14.5 k/uL (1.3-7.7); Neutrophils % (A) 74 %; Platelet Count 319 k/uL (150-450); RBC 4.74 m/uL (3.80-5.40); RDW 15.4 % (11.5-15.5); WBC 19.7 k/uL (3.8-10.6)
--- NOTE | 2018-06-25 05:42 | CT ---
EXAM: CT Angiography Chest With Intravenous Contrast. CLINICAL HISTORY: Chest pain. TECHNIQUE: Axial computed tomographic angiography images of the chest with intravenous contrast using pulmonary embolism protocol. CTDI is 30.4 mGy and DLP is 183.3 mGy-cm. This CT exam was performed using one or more of the following dose reduction techniques: automated exposure control, adjustment of the mA and/or kV according to patient size, and/or use of iterative reconstruction technique. MIP reconstructed images were created and reviewed. COMPARISON: No relevant prior studies available. FINDINGS: Pulmonary arteries: Extensive filling defects seen within bilateral pulmonary arteries, extending into all lobar branches, as well as segmental and subsegmental branches. Findings are consistent with pulmonary emboli. The main pulmonary artery measures up to 3 cm, which is top normal. Aorta: No acute findings. No thoracic aortic aneurysm. Lungs: Lung volumes are within normal limits. No airspace consolidation. No diffuse interstitial abnormality. Pleural spaces: No significant effusion. No pneumothorax. Heart: Heart size normal. No significant pericardial effusion. There is leftward bowing of the interventricular septum, consistent with right ventricular strain. Bones: Unremarkable. No acute fracture. Lymph nodes: Unremarkable. No enlarged lymph nodes. IMPRESSION: Extensive bilateral pulmonary emboli with right ventricular strain. [employer] 06/25/18 05:38 Call Doctor Regarding Pulmonary Embolism, called Dr. Sepulveda on 06/25 05:38 (-04:00)
[2018-06-25 05:46] LABS: VBG PH 7.14 (7.31-7.41)
[2018-06-25 05:48] LABS: Albumin 3.9 g/dL (3.5-5.0); Calcium 8.6 mg/dL (8.4-10.2); Potassium 4.3 mmol/L (3.5-5.1); Total Bilirubin 0.8 mg/dL (0.2-1.3); Total Protein 6.7 g/dL (6.3-8.2)
[2018-06-25 05:49] LABS: INR 1.3 (<1.2)
--- NOTE | 2018-06-25 05:51 | CT ---
EXAM: CT Abdomen and Pelvis With Intravenous Contrast. CLINICAL HISTORY: Abdominal pain. TECHNIQUE: Axial computed tomography images of the abdomen and pelvis with intravenous contrast. CTDI is 13.7 mGy and DLP is 588.4 mGy-cm. This CT exam was performed using one or more of the following dose reduction techniques: automated exposure control, adjustment of the mA and/or kV according to patient size, and/or use of iterative reconstruction technique. Exam is limited by patient motion. COMPARISON: 03/22/18. FINDINGS: Lower thorax: No acute findings. ABDOMEN: Liver: Diffuse hepatic steatosis. No focal hepatic lesion. Gallbladder and bile ducts: Unremarkable. No calcified stones. No ductal dilation. Pancreas: Unremarkable. No ductal dilation. No mass. Spleen: Unremarkable. No splenomegaly. Adrenals: Unremarkable. No mass. Kidneys and ureters: Unremarkable. No hydronephrosis. No solid mass. PELVIS: Bladder: Unremarkable. No mass. Reproductive: Unremarkable as visualized. Appendix: No findings to suggest acute appendicitis. ABDOMEN + PELVIS: Stomach and bowel: No evidence of bowel obstruction. Postsurgical changes seen within the lower abdomen, with mild infiltrative changes regional to the sigmoid colon. Anastomotic suture site within the mid to distal sigmoid colon is consistent with recent partial colonic resection. There are scattered colonic diverticula, without evidence of acute diverticulitis. Peritoneum: No significant fluid collection. No free air. Postsurgical changes seen along the anterior abdominal wall. Lymph nodes: Unremarkable. No enlarged lymph nodes. Vasculature: Unremarkable. No aortic aneurysm. Bones: No acute fracture. IMPRESSION: No acute inflammatory or obstructive process seen within the abdomen or pelvis. Postsurgical changes within the lower abdomen. Within the limitations of this exam, there is no evidence of abscess or pneumoperitoneum.
[2018-06-25] MEDS ORDERED: SUCCINYLCHOLINE CHLORIDE VIAL 200 MG/10 ML VIAL IV STA (06:17)
[2018-06-25] MEDS ORDERED: ETOMIDATE 2 MG/ML 10 ML VIAL IVP STA (06:17)
[2018-06-25] MEDS ORDERED: SODIUM BICARB 8.4% 50 ML SYR (1 MEQ/ML) ONE (06:30)
[2018-06-25] MEDS ORDERED: EPINEPHrine 10 ML SYRINGE (0.1 MG/ML) ONE (06:30)
[2018-06-25] MEDS ORDERED: EPINEPHrine 1 MG/ML (MDV) 30 ML VIAL ONE (06:30)
[2018-06-25 06:46] LABS: Troponin I 0.827 ng/mL (0.000-0.034)
[2018-06-25] MEDS ORDERED: PROPOFOL 1,000 MG in EMPTY BAG 1 BAG IV ONE (06:51)
--- NOTE | 2018-06-25 07:41 | XR ---
EXAM: XR Chest, 1 View. CLINICAL HISTORY: Reason: INTUBATION TECHNIQUE: Frontal view of the chest. COMPARISON: 06/17/18 FINDINGS: Lungs: The lateral right lung is not included within the [id number]. The lungs are mildly hypoinflated. No definite airspace consolidation. Pleural spaces: No pneumothorax. Heart: Cardiac silhouette is top normal.. Mediastinum: No mediastinal shift. Endotracheal tube tip is over 8 cm above the cruz. Bones: Unremarkable. No acute fracture. IMPRESSION: Endotracheal tube tip is approximately 8 cm above the cruz. Recommend repositioning.
[2018-06-25 09:28] VITALS: BP 152/92; PULSE 56; RESP 14; TEMP 97.5
== END 2018-06-25 09:37 | disposition expired ==
LOC: EC 04:27
DX: I26.99 Other pulmonary embolism without acute cor pulmonale (principal); J96.00 Acute respiratory failure, unspecified whether with hypoxia or hypercapnia; E87.2 Acidosis; R00.0 Tachycardia, unspecified; J45.909 Unspecified asthma, uncomplicated; E78.5 Hyperlipidemia, unspecified; I10 Essential (primary) hypertension; K21.9 Gastro-esophageal reflux disease without esophagitis; E07.9 Disorder of thyroid, unspecified; G47.33 Obstructive sleep apnea (adult) (pediatric); Z88.1 Allergy status to other antibiotic agents; Z88.8 Allergy status to other drugs, medicaments and biological substances; Z91.048 Other nonmedicinal substance allergy status; Z79.1 Long term (current) use of non-steroidal anti-inflammatories (NSAID); Z79.51 Long term (current) use of inhaled steroids; Z79.899 Other long term (current) drug therapy; Z85.3 Personal history of malignant neoplasm of breast; Z90.11 Acquired absence of right breast and nipple; Z92.21 Personal history of antineoplastic chemotherapy; Z87.19 Personal history of other diseases of the digestive system; Z90.49 Acquired absence of other specified parts of digestive tract; Z99.89 Dependence on other enabling machines and devices; Z95.0 Presence of cardiac pacemaker
CPT/HCPCS: 99285; 31500; 92950; 96365; 96366 ×3; 96375 ×2; 96376; 36415; 94002; 93005; 83880; 80053; 82550; 82553; 82803; 83605; 84484; 85025; 85610; 85730; 71045; 71275; 74177; J0330; J2060; J1644; J2704; Q9967